=== PATIENT | male | born 1970 | race Caucasian/White ===

== ENCOUNTER 2019-11-25 11:11 | Inpatient (IN) | payer SELFPAY ==
[2019-11-25 11:14] VITALS: BP 114/81; PULSE 106; RESP 16; TEMP 36.7; O2SAT 98; BMI 45.1
[2019-11-25 11:26] LABS: Glucose Point of Care 256 mg/dL (70-110)
[2019-11-25 11:40] LABS: Basophils # 0.1 10^3/uL (0.0-0.1); Basophils % 0.6 %; Eosinophils # 0.1 10^3/uL (0.0-0.8); Eosinophils % 0.6 %; Hematocrit 43.3 % (42.0-52.0); Hemoglobin 14.4 g/dL (11.7-16.6); Lymphocytes # 1.6 10^3/uL (0.8-4.8); Lymphocytes % 13.7 %; Mean Corpuscular HGB Conc 33.3 g/dL (30.0-36.0); Mean Corpuscular Hemoglobin 27.1 pg (28.0-34.0); Mean Corpuscular Volume 81.4 fL (80-94); Mean Platelet Volume 11.2 fL (7.4-10.4); Monocytes % 8.8 %; Neutrophils # 8.57 10^3/uL (1.8-7.7); Neutrophils % 74.9 %; Nucleated Red Blood Cells % 0 %; Platelet Count 303 10^3/cmm (130-400); Red Blood Count 5.32 10^6/uL (4.1-5.3); Red Cell Distribution Width 13.2 % (12.1-15.1); White Blood Count 11.5 10^3/uL (4.0-10.0)
[2019-11-25 12:01] LABS: Alanine Aminotransferase 34 U/L (0-41); Albumin Level 4.1 g/dL (3.5-5.2); Alkaline Phosphatase 165 IU/L (40-130); Anion Gap 21.2 (5-19); Aspartate Amino Transferase 32 U/L (0-40); Blood Urea Nitrogen 11 mg/dL (6-20); Calcium 9.6 mg/dL (8.5-10.5); Carbon Dioxide 22 mmol/L (22-29); Chloride 95 mmol/L (98-107); Globulin 3.7 g/dL (1.3-4.6); Glomerular Filtration Rate 102.3 mL/min (90-130); Glucose 278 mg/dL (65-115); Osmolality Calculated 289 mOsm/kg (285-295); Potassium 3.2 mmol/L (3.5-5.1); Sodium 135 mmol/L (136-145); Total Protein 7.8 g/dL (6.6-8.7)
[2019-11-25] MEDS: haloperidol inj 5 mg/mL INJ 1 mL 2 MG IVP (12:04)
[2019-11-25] MEDS: piperacillin-tazobactam 3.375 GM in sodium chloride 0.9% (plus) 50 ML IV ×2 (12:04→20:39)
[2019-11-25 12:07] LABS: Alcohol Level < 10 mg/dL (0-10)
[2019-11-25 12:15] VITALS: BP 127/77; PULSE 96; RESP 20; TEMP 36.5; O2SAT 97
[2019-11-25 12:24] LABS: Lactic Sepsis W/Reflex 1.3 mmol/L (0.5-2.2)
--- NOTE | 2019-11-25 12:25 | PC.NURSE ---
Has several open wounds from scratching. There are Bugs all over me Left eye matted, red and draining. Pt states there are bugs in my eyes
--- NOTE | 2019-11-25 12:52 | ED_ITS ---
HPI - Skin/Abscess/Foreign Bdy General: Chief complaint: Skin/Abscess/Foreign Body Stated complaint: POSS INFESTATION Time Seen by Provider: 11/25/19 11:13 History of Present Illness: HPI narrative: This patient is a 49-year-old male who presents today complaining that he has worms in his skin. He said this started about 2 weeks ago. He has been treating his skin with lice treatment and has done a couple of house flea bombs in his truck. 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 He has multiple areas that are excoriated and appear infected including his left eye. He has a large lesion over the left evangelical. He denies fevers. He admits to smoking some marijuana while he was in [place] on his last trip driving. He denies alcohol or other drug use. He was picked up at home today and EMS notes that his was at the house but would not come out. She said that she did want to be around him she did not want to get whenever he had. The patient says that she also has lesions but this was not witnessed. EMS notes that they did not see any worms or insects on the patient although the patient kept handing them scabs and saying that they were bugs. MD complaint: rash and lesion Onset (ago): week(s) (2) Tetanus up to date: unsure Location: generalized Severity: severe Pain Consistency: constant Relieving factors: none Exacerbating factors: none Associated symptoms: Reports itching; Deny chills, fever(s), nausea or vomiting Treatments prior to arrival: OTC topical medication (Lice treatment) Review of Systems General: Reports: 10 or more systems reviewed and unremarkable except in HPI and below Const: Denies: fever(s), chills, fatigue or malaise Eyes: Denies: change in vision ENMT: Denies: odynophagia Card: Denies: chest pain or swelling of feet/ankles Resp: Denies: dyspnea, productive cough or non-productive cough GI: Denies: abdominal pain, nausea or vomiting : Denies: flank pain Musc: Denies: neck pain or back pain Skin/Breast: Reports: rash, pruritus, erythema, skin tenderness and sores Neuro: Denies: headache(s), numbness in extremities or weakness in extremities Maximiliano/Lymph: Denies: easy bruising or easy bleeding PFSH ED PFSH: Medical History Obesity Surgical History History of ankle surgery Family History Other No significant family history Social History Smoking and tobacco status: never smoked Alcohol intake: current Alcohol intake frequency: holidays/special occasions only Substance/Drug Use: current Substance/Drug use type: Marijuana Other substance/drug use details: Admits to using methamphetamine, although says has not used in a while, then says perhaps may be used some recently, is not sure. Says previously was snorting. Lives independently: Yes Household members: spouse Housing: House Marital status: Current occupational status: employed Physical Exam Const: COMMON NORMALS: no acute distress, patient oriented x3, no limitations and alert GENERAL APPEARANCE: cooperative and comfortable HENMT: HEAD & SCALP: other (Lesion, approximately 3 cm in diameter, on the left evangelical above the ear. This is scabbed over and dry.) FACE & SINUS: normal facial exam Eye: PERIORBITAL: periorbital findings abnormal (Left eye with marked surrounding erythema and purulent drainage. The conjunctive are swollen and red. Pupil appears intact and reactive. He also has significant swelling of the whole right side of his face and redness of the skin over the forehead and cheek.) Neck/C-Spine: COMMON NORMALS: supple, no meningeal signs and no JVD Chest: COMMONS NORMALS: normal inspection of the chest Resp: COMMON NORMALS: normal respiratory effort, No use of accessory muscles and clear to auscultation bilaterally AUSCULTATION: clear to auscultation bilaterally Cardio: COMMON NORMALS: no JVD, regular rate, regular rhythm and No murmurs present (Cardio) RATE: regular rate RHYTHM: regular rhythm GI: COMMON NORMALS: Normal to inspection, nondistended, normoactive bowel sounds present, Soft to palpation and non-tender INSPECTION: Yes normal to inspection AUSCULTATION: Yes normoactive bowel sounds PALPATION: Yes Soft to palpation Back/Pelvis: COMMON NORMALS: thoracic and lumbar spine normal to inspection Extremity: COMMON NORMALS: normal to inspection Neuro: COMMON NORMALS: patient oriented x3, moves all extremities, no focal motor deficits and no sensory deficits noted SENSORIUM/ORIENTATION: Yes alert MENINGEAL SIGNS: Yes no meningeal signs Psych: COMMON NORMALS: mental status grossly normal, cooperative and normal affect Skin: NARRATIVE SKIN EXAM: Multiple small excoriations all over the skin. There is a large lesion on the right upper abdomen with surrounding erythema. There is a large area on the left anterior lower leg and foot which appears infected. Course ED course: This patient will be admitted for cellulitis. His drug screen was positive for amphetamines. This does seem to be a psychiatric or substance abuse related issue however he certainly has created skin lesions which have become significantly infected. Cultures have been sent. Antibiotics have been started. Hospitalist will admit. Vital Signs: Vital signs: Vital Signs Temperature 97.6 F 11/25/19 20:00 Pulse Rate 78 11/25/19 20:00 Respiratory Rate 18 11/25/19 20:00 Blood Pressure 139/88 11/25/19 20:00 Pulse Oximetry 99 11/25/19 20:00 MDM - Skin/Abscess/Foreign Bdy Lab Data: Labs: Lab Results 11/25/19 11/25/19 11/25/19 Range/Units 10:40 10:40 10:40 WBC 11.5 H (4.0-10.0) 10^3/ uL RBC 5.32 H (4.1-5.3) 10^6/u L Hgb 14.4 (11.7-16.6) g/dL Hct 43.3 (42.0-52.0) % MCV 81.4 (80-94) fL MCH 27.1 L (28.0-34.0) pg MCHC 33.3 (30.0-36.0) g/dL RDW 13.2 (12.1-15.1) % Plt Count 303 (130-400) 10^3/c mm MPV 11.2 H (7.4-10.4) fL Neut % (Auto) 74.9 % Lymph % (Auto) 13.7 % [place] % (Auto) 8.8 % Eos % (Auto) 0.6 % Baso % (Auto) 0.6 % Neut # (Auto) 8.57 H (1.8-7.7) 10^3/u L Lymph # (Auto) 1.6 (0.8-4.8) 10^3/u L [place] # (Auto) 1.0 H (0.2-0.9) 10^3/u L Eos # (Auto) 0.1 (0.0-0.8) 10^3/u L Baso # (Auto) 0.1 (0.0-0.1) 10^3/u L Nucleated RBC % (a uto) 0 % Nucleated RBCs # 0.0 /100WBC ESR 74 H (0-10) mm/hr Sodium 135 L (136-145) mmol/L Potassium 3.2 L (3.5-5.1) mmol/L Chloride 95 L (98-107) mmol/L Carbon Dioxide 22 (22-29) mmol/L Anion Gap 21.2 H (5-19) BUN 11 (6-20) mg/dL Creatinine 0.8 (0.7-1.2) mg/dL GFR Calculation 102.3 (90-130) mL/min Glucose 278 H (65-115) mg/dL POC Glucose (70-110) mg/dL Calculated Osmolal ity 289 (285-295) mOsm/k g Lactic Acid (0.5-2.2) mmol/L Calcium 9.6 (8.5-10.5) mg/dL Total Bilirubin 1.0 (0.15-1.2) mg/dL AST 32 (0-40) U/L ALT 34 (0-41) U/L Alkaline Phosphata se 165 H (40-130) IU/L C-Reactive Protein (0.0-4.9) mg/L Total Protein 7.8 (6.6-8.7) g/dL Albumin 4.1 (3.5-5.2) g/dL Globulin 3.7 (1.3-4.6) g/dL Urine Color (Yellow) Urine Appearance (CLEAR) Urine pH (5-7) Ur Specific Gravit y (1.005-1.030) Urine Protein (Negative) Urine Glucose (UA) (Normal) Urine Ketones (Negative) Urine Blood (Negative) Urine Nitrate (Negative) Urine Bilirubin (Negative) Urine Urobilinogen (Negative) mg/dL Ur Leukocyte Zoila ase (Negative) Urine Opiates Scre en (Negative) ng/mL Ur Barbiturates Sc reen (Negative) ng/mL Ur Phencyclidine S crn (Negative) ng/mL Ur Amphetamines Sc reen (Negative) ng/mL U Benzodiazepines Scrn (Negative) ng/mL Urine Cocaine Scre en (Negative) ng/mL U Marijuana (THC) Screen (Negative) ng/mL Ethyl Alcohol < 10 (0-10) mg/dL 11/25/19 11/25/19 11/25/19 Range/Units 10:40 11:23 11:54 WBC (4.0-10.0) 10^3/ uL RBC (4.1-5.3) 10^6/u L Hgb (11.7-16.6) g/dL Hct (42.0-52.0) % MCV (80-94) fL MCH (28.0-34.0) pg MCHC (30.0-36.0) g/dL RDW (12.1-15.1) % Plt Count (130-400) 10^3/c mm MPV (7.4-10.4) fL Neut % (Auto) % Lymph % (Auto) % [place] % (Auto) % Eos % (Auto) % Baso % (Auto) % Neut # (Auto) (1.8-7.7) 10^3/u L Lymph # (Auto) (0.8-4.8) 10^3/u L [place] # (Auto) (0.2-0.9) 10^3/u L Eos # (Auto) (0.0-0.8) 10^3/u L Baso # (Auto) (0.0-0.1) 10^3/u L Nucleated RBC % (a uto) % Nucleated RBCs # /100WBC ESR (0-10) mm/hr Sodium (136-145) mmol/L Potassium (3.5-5.1) mmol/L Chloride (98-107) mmol/L Carbon Dioxide (22-29) mmol/L Anion Gap (5-19) BUN (6-20) mg/dL Creatinine (0.7-1.2) mg/dL GFR Calculation (90-130) mL/min Glucose (65-115) mg/dL POC Glucose 256 (70-110) mg/dL Calculated Osmolal ity (285-295) mOsm/k g Lactic Acid 1.3 (0.5-2.2) mmol/L Calcium (8.5-10.5) mg/dL Total Bilirubin (0.15-1.2) mg/dL AST (0-40) U/L ALT (0-41) U/L Alkaline Phosphata se (40-130) IU/L C-Reactive Protein 57.8 H (0.0-4.9) mg/L Total Protein (6.6-8.7) g/dL Albumin (3.5-5.2) g/dL Globulin (1.3-4.6) g/dL Urine Color (Yellow) Urine Appearance (CLEAR) Urine pH (5-7) Ur Specific Gravit y (1.005-1.030) Urine Protein (Negative) Urine Glucose (UA) (Normal) Urine Ketones (Negative) Urine Blood (Negative) Urine Nitrate (Negative) Urine Bilirubin (Negative) Urine Urobilinogen (Negative) mg/dL Ur Leukocyte Zoila ase (Negative) Urine Opiates Scre en (Negative) ng/mL Ur Barbiturates Sc reen (Negative) ng/mL Ur Phencyclidine S crn (Negative) ng/mL Ur Amphetamines Sc reen (Negative) ng/mL U Benzodiazepines Scrn (Negative) ng/mL Urine Cocaine Scre en (Negative) ng/mL U Marijuana (THC) Screen (Negative) ng/mL Ethyl Alcohol (0-10) mg/dL 11/25/19 11/25/19 Range/Units 13:58 13:58 WBC (4.0-10.0) 10^3/ uL RBC (4.1-5.3) 10^6/u L Hgb (11.7-16.6) g/dL Hct (42.0-52.0) % MCV (80-94) fL MCH (28.0-34.0) pg MCHC (30.0-36.0) g/dL RDW (12.1-15.1) % Plt Count (130-400) 10^3/c mm MPV (7.4-10.4) fL Neut % (Auto) % Lymph % (Auto) % [place] % (Auto) % Eos % (Auto) % Baso % (Auto) % Neut # (Auto) (1.8-7.7) 10^3/u L Lymph # (Auto) (0.8-4.8) 10^3/u L [place] # (Auto) (0.2-0.9) 10^3/u L Eos # (Auto) (0.0-0.8) 10^3/u L Baso # (Auto) (0.0-0.1) 10^3/u L Nucleated RBC % (a uto) % Nucleated RBCs # /100WBC ESR (0-10) mm/hr Sodium (136-145) mmol/L Potassium (3.5-5.1) mmol/L Chloride (98-107) mmol/L Carbon Dioxide (22-29) mmol/L Anion Gap (5-19) BUN (6-20) mg/dL Creatinine (0.7-1.2) mg/dL GFR Calculation (90-130) mL/min Glucose (65-115) mg/dL POC Glucose (70-110) mg/dL Calculated Osmolal ity (285-295) mOsm/k g Lactic Acid (0.5-2.2) mmol/L Calcium (8.5-10.5) mg/dL Total Bilirubin (0.15-1.2) mg/dL AST (0-40) U/L ALT (0-41) U/L Alkaline Phosphata se (40-130) IU/L C-Reactive Protein (0.0-4.9) mg/L Total Protein (6.6-8.7) g/dL Albumin (3.5-5.2) g/dL Globulin (1.3-4.6) g/dL Urine Color Yellow (Yellow) Urine Appearance Clear (CLEAR) Urine pH 5 (5-7) Ur Specific Gravit y 1.020 (1.005-1.030) Urine Protein Neg (Negative) Urine Glucose (UA) 4+ H (Normal) Urine Ketones 2+ H (Negative) Urine Blood Neg (Negative) Urine Nitrate Negative (Negative) Urine Bilirubin Neg (Negative) Urine Urobilinogen 1 H (Negative) mg/dL Ur Leukocyte Zoila ase Negative (Negative) Urine Opiates Scre en Negative (Negative) ng/mL Ur Barbiturates Sc reen Negative (Negative) ng/mL Ur Phencyclidine S crn Negative (Negative) ng/mL Ur Amphetamines Sc reen Positive H (Negative) ng/mL U Benzodiazepines Scrn Negative (Negative) ng/mL Urine Cocaine Scre en Negative (Negative) ng/mL U Marijuana (THC) Screen Negative (Negative) ng/mL Ethyl Alcohol (0-10) mg/dL Discharge Plan Discharge Patient Disposition: Admitted As Inpatient Admit Provider: Rad Grewal Discharge Date/Time: 11/25/19 17:34 Coding Level of Care Code ED Bearingizer for Chg Fwd Exam Comprehensive
--- NOTE | 2019-11-25 13:28 | CT_ITS ---
WS: [id number] CT orbit BI w con [id number] REASON FOR EXAM: r/o orbital cellulitis Multiple axial images were obtained with intravenous contrast enhancement. Coronal and sagittal MIP r econstructions were performed. TOTAL EXAM DLP: 410.[address] scans at [facility] use at least one of these dose optimization techniques: automat ed exposure control; mA and/or kV adjustment per patient size (includes targeted exams where dose is matched to clinical indication); or iterative reconstruction. FINDINGS: There is thickening of the soft tissue adjacent to the anterior inferior margins of both orbits. Pres umably this represents inflammation and swelling of the lower eyelid and adjacent soft tissue. Both globes are unremarkable. Normal optic nerves and ocular musculature. Normal intraorbital fat with no inflammatory change or ma ss identified. The bony structure of both orbits is unremarkable. Nasal septal deviation convex right with mild enlargement of the turbinates. No significant paranasal sinus changes. CT/CT orbit BI w con [id number] IMPRESSION: There is no intraorbital abnormality. Soft tissue abnormality is essentially sy mmetric and limited to the lower eyelid region.
--- NOTE | 2019-11-25 13:30 | CT_ITS ---
WS: [id number] CT head wo con* [id number] REASON FOR EXAM: AMS IV CONTRAST ADMINISTERED: None. TOTAL EXAM DLP: 798.[address] scans at [facility] use at least one of these dose optimization techniques: automat ed exposure control; mA and/or kV adjustment per patient size (includes targeted exams where dose is matched to clinical indication); or iterative reconstruction. FINDINGS: There is no midline shift or other significant mass effect. There is no ventriculomegaly. No findings of intra or extra-axial hemorrhage. No focal brain parenchymal abnormality is identified. Prominent pineal and choroidal calcification, not significant. The bony calvarium is intact. CT/CT head wo con* [id number] IMPRESSION: No significant intracranial abnormality.
[2019-11-25] MEDS: iohexol 300 mg/mL 100 mL Btl IV (13:41)
[2019-11-25 14:06] LABS: Add Urine Microscopic? NO
[2019-11-25 14:12] LABS: Bilirubin Urine Neg (Negative); Blood Urine Neg (Negative); Glucose Urine UA 4+ (Normal); Ketones Urine 2+ (Negative); Leukocyte Esterase Urine Negative (Negative); Nitrate Urine Negative (Negative); Protein Urine Neg (Negative); Urine Appearance Clear (CLEAR); Urine Color Yellow (Yellow); Urobilinogen Urine 1 mg/dL (Negative); pH Urine 5 (5-7)
[2019-11-25 14:21] LABS: Amphetamines Screen Urine Positive (Negative); Barbiturates Screen Urine Negative (Negative); Benzodiazepines Screen Urine Negative (Negative); Cocaine Screen Urine Negative (Negative); Opiate Screen Urine Negative (Negative); PCP Screen Urine Negative (Negative); THC Screen Urine Negative (Negative)
[2019-11-25 17:09] VITALS: BP 154/89; O2SAT 98
--- NOTE | 2019-11-25 17:16 | PC.NURSE ---
Dr Grewal in room ,assessing pt for admission
[2019-11-25 17:32] VITALS: BP 192/106; PULSE 65; O2SAT 100
--- NOTE | 2019-11-25 18:27 | PM.HP ---
Providers/Chief Complaint Admitting Physician: Rad Grewal Chief Complaint: POSS INFESTATION History of Present Illness Grzegorz Bess is a 49 year old male assessed in ER due to complaints of multiple bug bites, and stating that he has been having bugs coming out from his lesions, sometimes forearms. He reports that they are especially coming out anytime he is scratching the lesions. He otherwise says that lesions are not painful or itchy. He reports that the bugs are small, black. He says that at home he is try to save some of them and his has put some in the drawer. He has not brought any with him. He says that his discouraged him from coming to ER as nobody would believe them. He says that he is tried treating his house with flea bombs twice, but without success. He says he cannot identify what the bugs are. During the visit he tries to scratch and was lesions to see if he can show me how they come out from his lesions. He seems to think that perhaps some are coming, but never definitively identifies any. I definitely did not see any bugs in the lesions, on his skin, or around him on the bed. He has multiple excoriations on his body in various stages of healing. Asking if his could either bring a bottle in, or take pictures, he says that she would not want to come in, and also she does not drive. He does say that she also has multiple lesions on her body. He denies having history of prior skin condition. Says that this is been going on for several weeks. Denies any recent medication changes. In ER he test positive for amphetamine. He does admit to occasionally smoking marijuana, does say that occasionally snorts methamphetamine. He does have swelling, redness, as well as discharge from the left eye. He feels that he also had bugs coming out from the eye, although again I do not see any there. He denies any history of eye conditions in the past like glaucoma, etc. He does say that light is slightly bothersome, but denies trouble seeing. In ER he was assessed by CT head and orbit, without finding of intraorbital abnormality, with soft tissue swelling of lower eyelid and adjacent area. On CT swelling appears to be somewhat symmetrical. On examination left side definitely appears with more swelling, as well as drainage present which is not seen on the right. He received a dose of Zosyn and vancomycin in ER. Review of Systems Const: Denies: fever(s), chills, body aches or malaise Eyes: Reports: eye redness (around the eyes); Denies: change in vision ENMT: Denies: throat pain, oral sores or ear or mastoid pain Card: Denies: chest pain, edema, pre-syncope or dyspnea on exertion Resp: Denies: dyspnea, productive cough, change in phlegm color or hemoptysis GI: Denies: abdominal pain, nausea, vomiting, diarrhea, constipation, hematochezia or melena : Denies: flank pain, difficulty urinating, urinary frequency or hematuria Musc: Denies: back pain, joint swelling or joint redness Skin/Breast: Reports: rash, sores and new lesions (Feels that bugs are biting him, causing new lesions and when he scrathes them climb out of the lesions. Says also had multiple bugs coming up with him every he would climb into a bathtub. Denies any lesions on mucous membranes.) Neuro: Denies: headache(s), numbness in extremities, weakness in extremities, dizziness, confusion or seizure-like activity Endo: Denies: polyuria or polydipsia Maximiliano/Lymph: Denies: easy bleeding or purpura All/Imm: Denies: urticaria, throat swelling or tongue swelling Medications/Allergies Home Medications Medication Instructions Recorded Confirmed Last Taken Type naproxen 2 tab PO PRN 11/25/19 11/25/19 Unknown History phentermine 37.5 mg PO DAILY 11/25/19 11/25/19 11/25/19 History Allergies Allergy/AdvReac Type Severity Reaction Status Date / Time codeine Allergy ADR-Vomitin Verified 11/25/19 12:43 g PFSH Acute PFSH: Medical History Obesity Surgical History History of ankle surgery Family History Other No significant family history Social History Smoking and tobacco status: never smoked Alcohol intake: current Alcohol intake frequency: holidays/special occasions only Substance/Drug Use: current Substance/Drug use type: Marijuana Other substance/drug use details: Admits to using methamphetamine, although says has not used in a while, then says perhaps may be used some recently, is not sure. Says previously was snorting. Lives independently: Yes Household members: spouse Housing: House Marital status: Current occupational status: employed Vitals/I&O/Wt Last Vital Signs Temp 97.7 F 11/25/19 12:15 Pulse 65 11/25/19 17:32 Resp 20 H 11/25/19 12:15 BP 192/106 11/25/19 17:32 Pulse Ox 100 11/25/19 17:32 Weight last 48 hrs Weight 127.006 kg Physical Exam Const: COMMON NORMALS: no acute distress and patient oriented x3 NUTRITIONAL APPEARANCE: obese HENMT: COMMON NORMALS: oropharynx normal Eye: OTHER: Palpable swelling on the left side, upper and lower eyelid, on the left with purulent discharge, also with mild conjunctival erythema, pupils symmetric, reactive to light. Erythema crosses across the glabella to the other side with some palpable edema also on the right side, but not as pronounced, and without purulent discharge, no conjunctivitis. Neck/C-Spine: COMMON NORMALS: no JVD Resp: COMMON NORMALS: normal respiratory effort and clear to auscultation bilaterally AUSCULTATION: clear to auscultation bilaterally Cardio: COMMON NORMALS: no JVD, regular rhythm, S1 normal heart sound present, S2 normal heart sound present and No murmurs present (Cardio) RHYTHM: regular rhythm HEART SOUNDS: S1 normal heart sound present and S2 normal heart sound present GI: COMMON NORMALS: Normal to inspection, nondistended, normoactive bowel sounds present, Soft to palpation and non-tender PALPATION: Yes Soft to palpation Extremity: COMMON NORMALS: no joint enlargement and no pedal edema Neuro: COMMON NORMALS: patient oriented x3 and moves all extremities Skin: COMMON NORMALS: no rashes or lesions noted LESIONS: lesion noted (Multiple lesions scattered at his body, different sizes, different stages of healing, with excoriations, some small ulcerations like on his dorsal hands, forearms about 5-8 mm in size, with shallow base, some with small amount of sloughing tissue, some with healing eschar, 1 is freshly scratched small amount of bleeding, with minimal surrounding erythema. Some lesions on his body are larger, including larger more circular appearing lesion on the left congregation with yellowish appearing eschar tissue without any drainage, without any significant depth to the lesion, no raised borders, no surrounding erythema. No drainage. Another larger lesion noted on left dorsal foot, irregularly shaped, about 6 centimeters,, at 1 large small dried blood, otherwise some yellowish eschar, without any drainage, not much surrounding erythema. No oral lesions. No genital lesions. One 2 cm scalp lesion with some shallow ulceration, yellowish eschar, no drainage noted on the head about 2 cm, another smaller 1 about 8 mm) Data : 11/25/19 10:40 11/25/19 10:40 Micro: Microbiology 11/25/19 11:54 Blood Culture - Preliminary Blood SPECIMEN COLLECTED 11/25/19 11:54 Blood Culture - Preliminary Blood SPECIMEN COLLECTED A&P Assessment and plan (1) Preseptal cellulitis: Worse on the left side, with purulent discharge and conjunctivitis. No orbital cellulitis noted on CT of orbit, CT head unremarkable. I discussed with him, he is agreeable for admission for IV antibiotics due to moderate to severe amount of swelling of the soft tissues. Cipro eyedrops. Continue Vanco and Zosyn due to multiple skin lesions, sent for drug use. Check MRSA PCR. He has minimal leukocytosis 11 and 5, otherwise no signs sepsis, no sinus tachycardia, no fever or other symptoms. Monitor for any changes. Status: Acute (2) Conjunctivitis: As above. Visual acuity appears to be intact. No history of glaucoma. Quite significant overlying preseptal cellulitis. Status: Acute (3) Skin lesions: Multiple skin lesions scattered on his body in difference as is, different stages of healing some with yellowish eschar, some with some crusted blood covering. He reports that these are from bug bites and bugs climbing out of them if he scratches them or if he takes a bath. I did not see any bugs on him or around him he tried to scratch 1 lesions to show me, and I did not see any bugs coming out either. He does say that his also has a lesion, and that they do have some bugs at home discussed with him that if she could maybe take photos for us. At this time antibiotics as above for cellulitis. Will check ESR, CRP. Monitor for any insects or warms. His story seems to change and whether they are all black bugs or warms. My high concern is possibly for formication, perhaps secondary to amphetamine use. He does say 7 drinks alcohol as well, but only on occasion. Cannot be sure he is not having some withdrawal as well. At this time will add CIWA protocol in case of any severe withdrawal. Discussed with him regarding to me to use, as to risks with continued use and strongly urged against use again. He states he understands that he understands and knows about the risk. Under says that he should not be using. Status: Acute (4) Formication: As above. Not clear whether they are actually insects or warms there are tract will. Not could be seen on him in or around lesions, or on his bed or other belongings. For now we will keep under contact isolation, if can pictures of the insects this would be helpful. Otherwise he does see tried treating at home, but if in for in 6 involved, discussed with him may require professional assist fumigation. I did not see lesions between his and her toes. Will try to see if can get him tested for scabies, although this is much less likely given does not have typical lesions as finger webs, wrist,, nothing on genitals. Denies itching. Status: Acute (5) Leukocytosis: Minimal leukocytosis, 11. 5. As above Status: Acute (6) HTN (hypertension): Blood pressure elevated on presentation up to 1 reading of 192/106, low initially low 114/81. For now monitor. Cardiac diet. If persist any elevated or symptomatic may additional treatment. Status: Acute (7) Hypokalemia: Replace Status: Acute (8) Drug use: Discussed with him adverse effects of drug use. He understands should not be using methamphetamine. Says has not used in a while, then is not sure may have snorted some recently. Says occasionally smokes marijuana. 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 Status: Acute Attestations Medical Necessity Statement*: Place in observation. Coding Level of Care Code Acute Taco Maker for [employer] Diagnoses Preseptal cellulitis L03.213 Conjunctivitis H10.9 Skin lesions L98.9 Formication R20.2 Leukocytosis D72.829 HTN (hypertension) I10 Hypokalemia E87.6 Drug use F19.90
--- NOTE | 2019-11-25 18:57 | PC.PHAR ---
Pharmacokinetic dosing service Objective: Patient: Floor: Age: 49 yo Serum creatinine: 0.8 mg/dL Height: 66.1 Inches Weight (kg): 127 Assessment: IBW (kg): 64.03 Dosing wt(kg): 89.2 Estimated Creatinine clearance (ml/min): 130 Clearance limited to 130 ml/min to reduce risk of overdosing. CRCL method: Cockcroft and Gault using adjusted body weight Drug selected: Vancomycin Loading dose (mg): Vd (liters): 62.4 (factor used: 0.7 L/kg) Leobardo (hr-1): 0.112 Half life (hrs): 6.19 CLvanco= 6.989 L/hr Recommended dose: 1500 mg Interval: 8 hrs Infusion time (hrs): 1 Predicted peak (mcg/mL): 38.4 Predicted trough (mcg/mL): 17.53 Adjusted body weight was selected for vancomycin dosing. To switch back, select the total body weight option above. Renal function is stable [ ] /unstable [ ] Recommendations: Give Vancomycin 1500 mg q 8 hrs with an expected Cpeak of 38.4 mcg/ml and an expected Ctrough of 17.53 mcg/ml AUC 0-24 /CRYSTAL Data: CRYSTAL 0.5 mcg/mL: AUC/CRYSTAL: 1287.7 CRYSTAL 1.0 mcg/mL: AUC/CRYSTAL: 643.9 --------- CRYSTAL 1.5 mcg/mL: AUC/CRYSTAL: 429.2 CRYSTAL 2.0 mcg/mL: AUC/CRYSTAL: 321.9 Thank you for the consult, will continue to follow.
[2019-11-25 19:07] LABS: C Reactive Protein 57.8 mg/L (0.0-4.9)
[2019-11-25 19:34] VITALS: BP 139/88; PULSE 78; RESP 18; TEMP 36.4; O2SAT 99
[2019-11-25 19:42] LABS: Erythrocyte Sedimentation Rate 74 mm/hr (0-10)
[2019-11-25 20:00] VITALS: BP 139/88; PULSE 78; RESP 18; TEMP 36.4; O2SAT 99
[2019-11-25] MEDS: ciprofloxacin 0.3% Op Soln 2.5 mL Btl 1 DROP EYE-LEFT (23:58)
[2019-11-26] VITALS: BP 131/82; PULSE 68; RESP 20; TEMP 36.9; O2SAT 97
[2019-11-26 04:00] VITALS: BP 138/89; PULSE 72; RESP 18; TEMP 36.6; O2SAT 97
[2019-11-26] MEDS: piperacillin-tazobactam 3.375 GM in sodium chloride 0.9% (plus) 50 ML IV ×3 (04:57→23:07)
[2019-11-26 05:21] LABS: Basophils # 0.1 10^3/uL (0.0-0.1); Basophils % 0.7 %; Eosinophils # 0.1 10^3/uL (0.0-0.8); Eosinophils % 1.7 %; Hematocrit 39.3 % (42.0-52.0); Hemoglobin 12.9 g/dL (11.7-16.6); Lymphocytes # 2.2 10^3/uL (0.8-4.8); Lymphocytes % 27.9 %; Mean Corpuscular HGB Conc 32.8 g/dL (30.0-36.0); Mean Corpuscular Hemoglobin 27.1 pg (28.0-34.0); Mean Corpuscular Volume 82.6 fL (80-94); Mean Platelet Volume 10.9 fL (7.4-10.4); Monocytes # 0.9 10^3/uL (0.2-0.9); Monocytes % 10.7 %; Neutrophils # 4.59 10^3/uL (1.8-7.7); Neutrophils % 57.3 %; Nucleated Red Blood Cells % 0 %; Platelet Count 266 10^3/cmm (130-400); Red Blood Count 4.76 10^6/uL (4.1-5.3); Red Cell Distribution Width 13.2 % (12.1-15.1)
[2019-11-26 06:00] LABS: Alanine Aminotransferase 27 U/L (0-41); Albumin Level 3.4 g/dL (3.5-5.2); Alkaline Phosphatase 138 IU/L (40-130); Aspartate Amino Transferase 27 U/L (0-40); Blood Urea Nitrogen 9 mg/dL (6-20); Calcium 9.3 mg/dL (8.5-10.5); Carbon Dioxide 23 mmol/L (22-29); Chloride 102 mmol/L (98-107); Globulin 3.3 g/dL (1.3-4.6); Glomerular Filtration Rate 102.3 mL/min (90-130); Glucose 176 mg/dL (65-115); Osmolality Calculated 291 mOsm/kg (285-295); Sodium 139 mmol/L (136-145); Total Bilirubin 0.6 mg/dL (0.15-1.2); Total Protein 6.7 g/dL (6.6-8.7)
[2019-11-26 07:45] VITALS: BP 143/91; PULSE 76; RESP 18; TEMP 36.4; O2SAT 97
[2019-11-26] MEDS: ciprofloxacin 0.3% Op Soln 2.5 mL Btl 1 DROP EYE-LEFT ×4 (08:41→23:06)
[2019-11-26] MEDS: folic acid 1 mg Tablet PO (08:44)
[2019-11-26] MEDS: multivitamin therapeutic Tablet 1 TAB PO (08:44)
[2019-11-26] MEDS: thiamine 100 mg Tablet PO (08:44)
[2019-11-26] MEDS: potassium chloride ER 10 mEq Tablet 40 MEQ PO (08:44)
[2019-11-26 11:31] VITALS: BP 141/82; PULSE 84; RESP 16; TEMP 36.6; O2SAT 99
[2019-11-26 11:56] LABS: Vancomycin Trough 19.3 ug/mL (10-15)
--- NOTE | 2019-11-26 14:28 | PM.PN ---
Subjective Subjective: Interval history: His eyes still bothering him. Swollen. Has some drainage. Has photophobia. We have not noted any bugs on or around him. Vitals/I&O/Wt Last Vital Signs Temp 97.8 F 11/26/19 11:31 Pulse 84 11/26/19 11:31 Resp 16 11/26/19 11:31 BP 141/82 11/26/19 11:31 Pulse Ox 99 11/26/19 11:31 11/25/19 11/26/19 11/26/19 22:59 06:59 14:59 Intake Total 60 / 60 1050 / 1110 50 / 50 Output Total 500 / 500 Balance 60 / 60 1050 / 1110 -450 / -450 Weight last 48 hrs Weight 127.006 kg Physical Exam Const: COMMON NORMALS: no acute distress and patient oriented x3 NUTRITIONAL APPEARANCE: obese HENMT: COMMON NORMALS: oropharynx normal Eye: OTHER: Swelling appears better on the R side. L side still swollen. Mucopurulent drainage. Mild conjunctivitis. Pupils reactive. Visual acuity appears preserved. Erythema crossing the glabella is much better. Rright side without purulent discharge, no conjunctivitis. Neck/C-Spine: COMMON NORMALS: no JVD Resp: COMMON NORMALS: normal respiratory effort and clear to auscultation bilaterally AUSCULTATION: clear to auscultation bilaterally Cardio: COMMON NORMALS: no JVD, regular rhythm, S1 normal heart sound present, S2 normal heart sound present and No murmurs present (Cardio) RHYTHM: regular rhythm HEART SOUNDS: S1 normal heart sound present and S2 normal heart sound present GI: COMMON NORMALS: Normal to inspection, nondistended, normoactive bowel sounds present, Soft to palpation and non-tender PALPATION: Yes Soft to palpation Extremity: COMMON NORMALS: no joint enlargement and no pedal edema Neuro: COMMON NORMALS: patient oriented x3 and moves all extremities Skin: COMMON NORMALS: no rashes or lesions noted GENERAL SKIN EXAM: no rashes or lesions noted LESIONS: lesion noted (Multiple lesions scattered at his body, different sizes, different stages of healing, with excoriations, some small ulcerations like on his dorsal hands, forearms about 5-8 mm in size, with shallow base, some with small amount of sloughing tissue, some with healing eschar, 1 is freshly scratched small amount of bleeding, with minimal surrounding erythema. Some lesions on his body are larger, including larger more circular appearing lesion on the left worship with yellowish appearing eschar tissue without any drainage, without any significant depth to the lesion, no raised borders, no surrounding erythema. No drainage. Another larger lesion noted on left dorsal foot, irregularly shaped, about 6 centimeters,, at 1 large small dried blood, otherwise some yellowish eschar, without any drainage, not much surrounding erythema. No oral lesions. No genital lesions. One 2 cm scalp lesion with some shallow ulceration, yellowish eschar, no drainage noted on the head about 2 cm, another smaller 1 about 8 mm) Data : 11/26/19 04:55 11/26/19 04:55 Micro: Microbiology 11/25/19 11:54 Blood Culture - Preliminary Blood NEGATIVE TO DATE 11/25/19 11:54 Blood Culture - Preliminary Blood NEGATIVE TO DATE 11/25/19 20:26 MRSA Culture - Final Nose A&P Assessment and plan (1) Preseptal cellulitis: There is some improvement of swelling on his forehead, as well as superiorly over the left upper palpebra. Left side upper and lower eyelid still pretty swollen. Mucopurulent discharge still present. He is having photophobia. Pupils reactive. Visual acuity appears preserved. I do not see any foreign objects. No foreign object noted on CT orbit or head. Due to severity of cellulitis at this time continue IV antibiotics. Cipro eyedrops. Continue Vanco and Zosyn also due to multiple skin lesions, sent for drug use. Negative MRSA PCR. Follow left eye culture. Improved minimal leukocytosis, otherwise no signs sepsis, no sinus tachycardia, no fever or other symptoms. Monitor for any changes in the hospital due to reported infestation at home, propensity for him to pick on lesions and concern for poor hygienic practices. Status: Acute (2) Conjunctivitis: As above. Visual acuity appears to be intact. No history of glaucoma. Quite significant overlying preseptal cellulitis. Status: Acute (3) Skin lesions: Discussed with his . She cannot describe what kind of insect she may have seen. It does not appear she is seeing insects actually coming from his wounds, but she does try to describe that in 6 go through multiple life cycles and continue to attack him. I am not sure whether this is something she is observed or he is repeating based on what he has told her. She does think that she and her daughter have seen some insects of different sizes around the house. She will try to obtain some pictures and sent to his phone. Obtained scraping of the larger lesion, after obtaining consent from him, on his dorsal left foot with some dry yellowish eschar in the center. Will assess for scabies. Wound was prepped with chlorhexidine, scraped with sterile #15 scalpel, and treated with chlorhexidine subsequently. No bleeding or wounds, small amount of scrapings collected into container as instructed by microbiology. He tolerated it without any issues. Multiple skin lesions scattered on his body in difference as is, different stages of healing some with yellowish eschar, some with some crusted blood covering. He reports that these are from bug bites and bugs climbing out of them if he scratches them or if he takes a bath. I did not see any bugs on him or around him he tried to scratch 1 lesions to show me, and I did not see any bugs coming out either. He does say that his also has a lesion, and that they do have some bugs at home discussed with him that if she could maybe take photos for us. At this time antibiotics as above for cellulitis. ESR 74, CRP 57.8. Monitor for any insects or worms. His story seems to change and whether they are all black bugs or worms. My high concern is possibly for formication, perhaps secondary to amphetamine use. He does say he drinks alcohol as well, but only on occasion. Monitor for any withdrawal. So far has been remaining lucid. Discussed with him regarding to me to use, as to risks with continued use and strongly urged against use again. He states he understands that he understands and knows about the risk. Under says that he should not be using. Status: Acute (4) Formication: As above. Not clear whether they are actually insects or worms there are tract will. Not could be seen on him in or around lesions, or on his bed or other belongings. For now we will keep under contact isolation, if can pictures of the insects this would be helpful. Otherwise he does see tried treating at home, but if in for in 6 involved, discussed with him may require professional assist fumigation. I did not see lesions between his and her toes. Sample collected for assessment for scabies. Status: Acute (5) Leukocytosis: Resolved Status: Acute (6) HTN (hypertension): Improved. Remains close to goal, although could be a little bit better. Continue cardiac diet. Monitor. Status: Acute (7) Hypokalemia: Received additional replacement Status: Acute (8) Drug use: Discussed with him adverse effects of drug use. He understands should not be using methamphetamine. Says has not used in a while, then is not sure may have snorted some recently. Says occasionally smokes marijuana. 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 Status: Acute Attestations Medical Necessity Statement*: Continue admission for IV antibiotic treatment of preseptal cellulitis, conjunctivitis, with also multiple skin lesions and investigation for possible parasitic infection. Coding Level of Care Code Acute Hot [employer] [facility] Diagnoses Preseptal cellulitis L03.213 Conjunctivitis H10.9 Skin lesions L98.9 Formication R20.2 Leukocytosis D72.829 HTN (hypertension) I10 Hypokalemia E87.6 Drug use F19.90
[2019-11-26 15:32] VITALS: BP 152/92; PULSE 65; RESP 16; TEMP 36.4; O2SAT 100
[2019-11-26] MEDS: acetaminophen 325 mg Tablet 650 MG PO (16:19)
[2019-11-26 20:00] VITALS: BP 124/83; PULSE 65; RESP 17; TEMP 36.4; O2SAT 97
[2019-11-27] VITALS: BP 137/70; PULSE 64; RESP 19; TEMP 36.8; O2SAT 97
[2019-11-27 04:00] VITALS: BP 142/62; PULSE 61; RESP 17; TEMP 36.7; O2SAT 95
[2019-11-27] MEDS: piperacillin-tazobactam 3.375 GM in sodium chloride 0.9% (plus) 50 ML IV (04:07)
[2019-11-27 05:46] LABS: Basophils # 0.1 10^3/uL (0.0-0.1); Basophils % 0.6 %; Eosinophils # 0.1 10^3/uL (0.0-0.8); Eosinophils % 1.5 %; Hematocrit 38.4 % (42.0-52.0); Hemoglobin 12.3 g/dL (11.7-16.6); Lymphocytes # 1.7 10^3/uL (0.8-4.8); Lymphocytes % 21.6 %; Mean Corpuscular Hemoglobin 27.1 pg (28.0-34.0); Mean Corpuscular Volume 84.6 fL (80-94); Mean Platelet Volume 10.8 fL (7.4-10.4); Monocytes % 12.3 %; Neutrophils # 4.85 10^3/uL (1.8-7.7); Neutrophils % 62.1 %; Nucleated Red Blood Cells % 0 %; Platelet Count 223 10^3/cmm (130-400); Red Blood Count 4.54 10^6/uL (4.1-5.3); Red Cell Distribution Width 13.2 % (12.1-15.1); White Blood Count 7.8 10^3/uL (4.0-10.0)
[2019-11-27 06:35] LABS: Alanine Aminotransferase 24 U/L (0-41); Albumin Level 3.2 g/dL (3.5-5.2); Alkaline Phosphatase 131 IU/L (40-130); Anion Gap 15.5 (5-19); Aspartate Amino Transferase 25 U/L (0-40); Blood Urea Nitrogen 14 mg/dL (6-20); Calcium 9.3 mg/dL (8.5-10.5); Carbon Dioxide 25 mmol/L (22-29); Chloride 104 mmol/L (98-107); Globulin 3.2 g/dL (1.3-4.6); Glomerular Filtration Rate 30.2 mL/min (90-130); Glucose 199 mg/dL (65-115); Osmolality Calculated 298 mOsm/kg (285-295); Potassium 3.5 mmol/L (3.5-5.1); Sodium 141 mmol/L (136-145); Total Bilirubin 0.6 mg/dL (0.15-1.2); Total Protein 6.4 g/dL (6.6-8.7)
[2019-11-27 08:00] VITALS: BP 136/97; PULSE 78; RESP 16; TEMP 36.4; O2SAT 98
[2019-11-27] MEDS: multivitamin therapeutic Tablet 1 TAB PO (08:45)
[2019-11-27] MEDS: folic acid 1 mg Tablet PO (08:45)
[2019-11-27] MEDS: thiamine 100 mg Tablet PO (08:45)
[2019-11-27] MEDS: ciprofloxacin 0.3% Op Soln 2.5 mL Btl 1 DROP EYE-LEFT ×4 (08:45→21:39)
--- NOTE | 2019-11-27 11:06 | PC.CHAP ---
Pastoral Care Encounter/Spiritual Assessment Type of Contact [] Declined operative supervisor visit [] Patient/Family/Request visit [] Outpatient visit [] Follow-up visit [] Physician referral [] Code/Alert [] Routine visit [] Staff referral [] Actively dying [] Patient sleeping [] Family support [] [] Out of room [] Palliative care [] [] Receiving care in room [] Pre-surgical visit [] Trauma [] Long length of stay [] ICU visit [x] Other: covid 19 Relational/Emotional Strength [] Patient feels connected with others/family/visitors/staff [] Distress [] Loneliness/isolation [] Abandonment Spirituality of Patient [] Person of Jacki [] Attends Hoahaoism of their Jacki [] Believes in Prayer [] Reads Bible or Muslim materials [] There are Spiritual issues to be addressed Advanced Nursing Professor Interventions [] Prayer [] Active listening [] Non-anxious presence [] Spiritual/emotional support [] Crisis/trauma care [] Spiritual counseling [] Bereavement support [] Provided bereavement packet [] Provided Bible/devotional materials [] Provided toy/stuffed animal, coloring book to patient or family member [] Provided Communion [] Anointing/[place] [] Salvation [] Completed spiritual assessment [] Other: Impact on Illness or Injury [] Angry [] Fearful [] Anxious [] Often cries [] Exhaustion [] Unable to work [] Unable to attend roman catholic [] Unable to walk/stand [] Unable to read [] Unable to drive [] Unable to eat/drink [] Unable to sleep [] Unable to be with family [] Patient intubated [] Other: Summary covid 19 Time spent with patient 5 mins
[2019-11-27 12:00] VITALS: BP 137/92; PULSE 75; RESP 16; TEMP 36.4; O2SAT 96
[2019-11-27 13:49] LABS: Vancomycin Trough 31.8 ug/mL (10-15)
[2019-11-27 15:28] VITALS: BP 132/83; PULSE 71; RESP 16; TEMP 36.4; O2SAT 71
[2019-11-27 20:00] VITALS: BP 131/77; PULSE 73; RESP 18; TEMP 36.5; O2SAT 99
--- NOTE | 2019-11-27 21:03 | PM.PN ---
Subjective Subjective: Interval history: Cellulitis is improving, he is able to open his left eye now. He is working with his and the nurse to try to find an skiver hand. Reportedly skiver hand was found and came out to the house, reported that there is in fact some sort of infestation going on, but he is not sure what kind of insects that they may be, and so is having his supervisor plating and point assembly assess the situation. I could not identify any of the insects sent over by his as pictures are too blurry. Vitals/I&O/Wt Last Vital Signs Temp 97.7 F 11/27/19 20:00 Pulse 73 11/27/19 20:00 Resp 18 11/27/19 20:00 BP 131/77 11/27/19 20:00 Pulse Ox 99 11/27/19 20:00 11/27/19 11/27/19 11/27/19 06:59 14:59 22:59 Intake Total 780 / 1370 120 / 120 240 / 360 Output Total 650 / 1800 800 / 800 Balance 130 / -430 -680 / -680 240 / -440 Physical Exam Const: COMMON NORMALS: no acute distress and patient oriented x3 NUTRITIONAL APPEARANCE: obese HENMT: COMMON NORMALS: oropharynx normal Eye: OTHER: Improving preseptal cellulitis with decreasing swelling, decreasing drainage. Today he is able to open his eye. Left side is still more swollen compared to the right. I again do not see any insects. Swelling with near resolution on R side. On the left mucopurulent drainage. Mild conjunctivitis. Pupils reactive. Visual acuity appears preserved. Neck/C-Spine: COMMON NORMALS: no JVD Resp: COMMON NORMALS: normal respiratory effort and clear to auscultation bilaterally AUSCULTATION: clear to auscultation bilaterally Cardio: COMMON NORMALS: no JVD, regular rhythm, S1 normal heart sound present, S2 normal heart sound present and No murmurs present (Cardio) RHYTHM: regular rhythm HEART SOUNDS: S1 normal heart sound present and S2 normal heart sound present GI: COMMON NORMALS: Normal to inspection, nondistended, normoactive bowel sounds present, Soft to palpation and non-tender PALPATION: Yes Soft to palpation Extremity: COMMON NORMALS: no joint enlargement and no pedal edema Neuro: COMMON NORMALS: patient oriented x3 and moves all extremities Skin: COMMON NORMALS: no rashes or lesions noted GENERAL SKIN EXAM: no rashes or lesions noted LESIONS: lesion noted (Multiple lesions scattered at his body, different sizes, different stages of healing, with excoriations, some small ulcerations like on his dorsal hands, forearms about 5-8 mm in size, with shallow base, some with small amount of sloughing tissue, some with healing eschar, 1 is freshly scratched small amount of bleeding, with minimal surrounding erythema. Some lesions on his body are larger, including larger more circular appearing lesion on the left caodaism with yellowish appearing eschar tissue without any drainage, without any significant depth to the lesion, no raised borders, no surrounding erythema. No drainage. Another larger lesion noted on left dorsal foot, irregularly shaped, about 6 centimeters,, at 1 large small dried blood, otherwise some yellowish eschar, without any drainage, not much surrounding erythema. No oral lesions. No genital lesions. One 2 cm scalp lesion with some shallow ulceration, yellowish eschar, no drainage noted on the head about 2 cm, another smaller 1 about 8 mm) Data : 11/27/19 05:05 11/27/19 05:05 Micro: Microbiology 11/25/19 12:50 Eye/Ear/Nose/Throat Culture - Preliminary Eye - Left Staphylococcus aureus A&P Assessment and plan (1) Preseptal cellulitis: Improving preseptal cellulitis, still swollen left side but now he is able to open his eye partially. Drainage is improving. Staphylococcus aureus not MRSA but resistant to penicillin and Unasyn growing on culture. He is developed acute kidney injury. Discussed with him creatinine is up to 2.3. Did take naproxen at home, but also received Zosyn, vancomycin here. Counseled him to avoid NSAIDs in the future. Discontinue current antibiotics and changed to Rocephin. No foreign object noted on CT orbit or head. No orbital cellulitis. Due to severity of cellulitis at this time continue IV antibiotics. Cipro eyedrops. Continue Vanco and Zosyn also due to multiple skin lesions, sent for drug use. Negative MRSA PCR. Improved minimal leukocytosis, otherwise no signs sepsis, no sinus tachycardia, no fever or other symptoms. Status: Acute (2) NANCY (acute kidney injury): As above. Status: Acute (3) Conjunctivitis: As above. Status: Acute (4) Skin lesions: has attempted to send some pictures this morning, but I could not identify any of the insects in the pictures as images were too blurry. Patient working with nursing staff and his were able to get a skiver hand to come out, who stated that indeed appears there is an infestation of some sort at his home, however, he could not identify what organism was the cause of it and was having to summon his supervisor plating and point assembly to assess the situation. On prior discussion with his she cannot describe what kind of insect she may have seen. It does not appear she is seeing insects actually coming from his wounds, but she does try to describe that in 6 go through multiple life cycles and continue to attack him. I am not sure whether this is something she is observed or he is repeating based on what he has told her. She does think that she and her daughter have seen some insects of different sizes around the house. Pending skin scrapings sample for scabies. Multiple skin lesions scattered on his body in difference as is, different stages of healing some with yellowish eschar, some with some crusted blood covering. He reports that these are from bug bites and bugs climbing out of them if he scratches them or if he takes a bath. I did not see any bugs on him or around him he tried to scratch 1 lesions to show me, and I did not see any bugs coming out either. He does say that his also has a lesion, and that they do have some bugs at home discussed with him that if she could maybe take photos for us. At this time antibiotics as above for cellulitis. ESR 74, CRP 57.8. Monitor for any insects or worms. His story seems to change and whether they are all black bugs or worms. My high concern is possibly for formication, perhaps secondary to amphetamine use. He does say he drinks alcohol as well, but only on occasion. Monitor for any withdrawal. So far has been remaining lucid. Discussed with him regarding to me to use, as to risks with continued use and strongly urged against use again. He states he understands that he understands and knows about the risk. Under says that he should not be using. Status: Acute (5) Formication: As above. Not clear whether they are actually insects or worms there are tract will. Not could be seen on him in or around lesions, or on his bed or other belongings. For now we will keep under contact isolation, if can pictures of the insects this would be helpful. Otherwise he does see tried treating at home, but if in for in 6 involved, discussed with him may require professional assist fumigation. I did not see lesions between his and her toes. Sample collected for assessment for scabies. Maintained under contact isolation due to concern for actual infestation at home. Status: Acute (6) Leukocytosis: Resolved Status: Acute (7) HTN (hypertension): Improved. Remains close to goal, although could be a little bit better. Continue cardiac diet. Monitor. Status: Acute (8) Hypokalemia: Received additional replacement Status: Acute (9) Drug use: Discussed with him adverse effects of drug use. He understands should not be using methamphetamine. Says has not used in a while, then is not sure may have snorted some recently. Says occasionally smokes marijuana. 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 Status: Acute Attestations Medical Necessity Statement*: Continue admission for assessment of management of significant preseptal cellulitis, assessment for possible parasitic skin infection, acute kidney injury. Coding Level of Care Code Acute [employer] Head Former for [employer] Brinda Diagnoses Preseptal cellulitis L03.213 NANCY (acute kidney injury) N17.9 Conjunctivitis H10.9 Skin lesions L98.9 Formication R20.2 Leukocytosis D72.829 HTN (hypertension) I10 Hypokalemia E87.6 Drug use F19.90
[2019-11-27] MEDS: cefTRIAXone 1,000 MG in sodium chloride 0.9% (plus) 50 ML 100 MG IV (21:39)
[2019-11-28] VITALS: BP 152/81; PULSE 76; RESP 17; TEMP 36.7; O2SAT 96
[2019-11-28 04:00] VITALS: BP 156/89; PULSE 77; RESP 17; TEMP 36.8; O2SAT 97
[2019-11-28 05:38] LABS: Basophils # 0.1 10^3/uL (0.0-0.1); Basophils % 0.7 %; Eosinophils # 0.1 10^3/uL (0.0-0.8); Eosinophils % 1.5 %; Hematocrit 37.1 % (42.0-52.0); Hemoglobin 12.2 g/dL (11.7-16.6); Lymphocytes # 1.8 10^3/uL (0.8-4.8); Lymphocytes % 23.4 %; Mean Corpuscular HGB Conc 32.9 g/dL (30.0-36.0); Mean Corpuscular Hemoglobin 27.2 pg (28.0-34.0); Mean Corpuscular Volume 82.8 fL (80-94); Mean Platelet Volume 11.1 fL (7.4-10.4); Monocytes % 13.1 %; Neutrophils # 4.45 10^3/uL (1.8-7.7); Neutrophils % 59.3 %; Nucleated Red Blood Cells % 0 %; Platelet Count 218 10^3/cmm (130-400); Red Blood Count 4.48 10^6/uL (4.1-5.3); Red Cell Distribution Width 13.1 % (12.1-15.1); White Blood Count 7.5 10^3/uL (4.0-10.0)
[2019-11-28 06:07] LABS: Alanine Aminotransferase 20 U/L (0-41); Albumin Level 3.3 g/dL (3.5-5.2); Alkaline Phosphatase 130 IU/L (40-130); Anion Gap 15.4 (5-19); Aspartate Amino Transferase 24 U/L (0-40); Blood Urea Nitrogen 16 mg/dL (6-20); Calcium 9.3 mg/dL (8.5-10.5); Carbon Dioxide 23 mmol/L (22-29); Chloride 105 mmol/L (98-107); Globulin 3.3 g/dL (1.3-4.6); Glomerular Filtration Rate 24.1 mL/min (90-130); Glucose 212 mg/dL (65-115); Osmolality Calculated 297 mOsm/kg (285-295); Potassium 3.4 mmol/L (3.5-5.1); Sodium 140 mmol/L (136-145); Total Bilirubin 0.4 mg/dL (0.15-1.2); Total Protein 6.6 g/dL (6.6-8.7)
[2019-11-28 08:00] VITALS: BP 137/92; PULSE 71; RESP 18; TEMP 36.7; O2SAT 99
[2019-11-28] MEDS: potassium chloride ER 10 mEq Tablet 20 MEQ PO (09:19)
[2019-11-28] MEDS: ciprofloxacin 0.3% Op Soln 2.5 mL Btl 1 DROP EYE-LEFT (09:20)
[2019-11-28] MEDS: folic acid 1 mg Tablet PO (09:20)
[2019-11-28] MEDS: thiamine 100 mg Tablet PO (09:20)
[2019-11-28] MEDS: multivitamin therapeutic Tablet 1 TAB PO (09:20)
[2019-11-28] MEDS: sodium chloride 0.9% 500 ML 100 ML IV (10:46)
[2019-11-28 12:00] VITALS: BP 161/92; PULSE 67; RESP 18; TEMP 36.6; O2SAT 96
--- NOTE | 2019-11-28 12:57 | P.DS_ITS ---
Discharge Providers Date of Admission: 11/26/19 14:47 Date of Discharge: November 28, 2019 Attending Provider at Admission: Rad Grewal Attending Provider at Discharge: Rad Grewal Diagnoses at Discharge Discharge Diagnosis (1) Preseptal cellulitis: Status: Acute (2) NANCY (acute kidney injury): Status: Acute (3) Conjunctivitis: Status: Acute (4) Skin lesions: Status: Acute (5) Formication: Status: Acute (6) Leukocytosis: Status: Acute (7) HTN (hypertension): Status: Acute (8) Hypokalemia: Status: Acute (9) Drug use: Status: Acute Reason for Visit Reason for Visit: POSS INFESTATION Hospital Course Hospital Course: 49-year-old gentleman with history of obesity, on weight loss medication, was admitted due to large area of preseptal cellulitis, much worse on the left side, with some associated moderate conjunctivitis, and preseptal cellulitis crossing across the forehead/glabella and to the right eye as well. CT head and orbital CT did not reveal orbital cellulitis or other complications. He also had multiple wounds/ulcers/excoriations on his body stating that he has been having infestation of some sort of insects or large by or sometimes warms which would go through different forms in the lifecycle, and felt that they were sometimes coming out of his wounds. No insects were noted on him or on his belongings in the emergency department. His did send in some pictures of insects at home but they were too blurry to identify. They reportedly did call out and laboratory animal facility supervisor who said that they did have some sort of infestation, but he himself could not identify the insects. Scrapings were collected from some eschar tissue on his wound and sent for assessment for scabies, although otherwise distribution is not suggestive of this infection. He did not have sepsis. Due to extent of cellulitis was treated with IV antibiotics in the hospital initially with Zosyn and vancomycin. He did develop acute kidney injury which may have been due to naproxen he takes at home, and/or possibly antibiotic combination, so these were discontinued. I culture eventually grew Staphylococcus aureus, not MRSA but resistant to amoxicillin. He was transitioned to Rocephin. He has preseptal cellulitis was improving, and has improved to the point he is able to mostly open the left eye. Erythema has significantly subsided and is nearly resolved. Still some residual conjunctivitis for which she is also been receiving Cipro gtt.. He is stated to the nurse that he is going to leave AGAINST MEDICAL ADVICE today. I asked her to remove her to remove his IV and get him ready. I discussed with him and he understands that there is a risk that infection may return or worsen, as well as with kidney injury he is risking worse renal failure, with our diagnosis and treatment not complete he states he understands that he is at risk of progression of his condition or complications that may lead to disability or . He understands that we are encouraging him to stay to continue work-up and treatment and he can do so in case he changes his mind, and is also welcome to return at any time to ER to continue his treatment. He is otherwise encouraged to follow-up with primary care provider as soon as possible, and is also given referral to ophthalmology. He is also informed that he is given prescriptions for antibiotics, Cipro drops to continue at home. He is counseled against use of any further NSAIDs. He is counseled against use of any further recreational drugs. He verbalized understanding. He understands that he needs to stay in the hospital and that his care is incomplete, but is welcome to return in case he still proceeds with leaving. Physical Exam Const: COMMON NORMALS: no acute distress and patient oriented x3 NUTRITIONAL APPEARANCE: obese HENMT: COMMON NORMALS: oropharynx normal Eye: OTHER: Significant improvement in preseptal cellulitis and conjunctivitis of left eye, right eye completely resolved. Neck/C-Spine: COMMON NORMALS: no JVD Resp: COMMON NORMALS: normal respiratory effort and clear to auscultation bilaterally AUSCULTATION: clear to auscultation bilaterally Cardio: COMMON NORMALS: no JVD, regular rhythm, S1 normal heart sound present, S2 normal heart sound present and No murmurs present (Cardio) RHYTHM: regular rhythm HEART SOUNDS: S1 normal heart sound present and S2 normal heart sound present GI: COMMON NORMALS: Normal to inspection, nondistended, normoactive bowel sounds present, Soft to palpation and non-tender PALPATION: Yes Soft to palpation Extremity: COMMON NORMALS: no joint enlargement and no pedal edema Neuro: COMMON NORMALS: patient oriented x3 and moves all extremities Skin: COMMON NORMALS: no rashes or lesions noted GENERAL SKIN EXAM: no rashes or lesions noted LESIONS: lesion noted (No fresh lesions. Multiple healing lesions scattered at his body, different sizes, different stages of healing, with excoriations, some small ulcerations like on his dorsal hands, forearms about 5-8 mm in size, with shallow base, some with small amount of sloughing tissue, some with healing eschar, 1 is freshly scratched small amount of bleeding, with minimal surrounding erythema. Some lesions on his body are larger, including larger more circular appearing lesion on the left mormon with yellowish appearing eschar tissue without any drainage, without any significant depth to the lesion, no raised borders, no surrounding erythema. No drainage. Another larger lesion noted on left dorsal foot, irregularly shaped, about 6 centimeters,, at 1 large small dried blood, otherwise some yellowish eschar, without any drainage, not much surrounding erythema. No oral lesions. No genital lesions. One 2 cm scalp lesion with some shallow ulceration, yellowish eschar, no drainage noted on the head about 2 cm, another smaller 1 about 8 mm) Discharge Data Data Completed and Pending: Completed Studies During Hospitalization Category Date Time Status CT head wo con* [id number] Stat Cat Scan 11/25/19 13:[address] orbit BI w con [id number] Urgent Cat Scan 11/25/19 13:28 Completed Pending at discharge Category Date Time Status Blood Culture Sta t Lab 11/25/19 11:54 Results Eye Culture Stat Lab 11/25/19 12:50 Results Miscellaneous Kenzie t Routine Lab 11/26/19 14:20 Received US renal BI with bladder Routine Ultrasound 11/28/19 08:18 Ordered Labs from last 24 hours 11/28/19 11/28/19 11/27/19 04:20 04:20 12:52 WBC 7.5 RBC 4.48 Hgb 12.2 Hct 37.1 L MCV 82.8 MCH 27.2 L MCHC 32.9 RDW 13.1 Plt Count 218 MPV 11.1 H Neut % (Auto) 59.3 Lymph % (Auto) 23.4 [place] % (Auto) 13.1 Eos % (Auto) 1.5 Baso % (Auto) 0.7 Neut # (Auto) 4.45 Lymph # (Auto) 1.8 [place] # (Auto) 1.0 H Eos # (Auto) 0.1 Baso # (Auto) 0.1 Nucleated RBC % (a uto) 0 Nucleated RBCs # 0.0 Sodium 140 Potassium 3.4 L Chloride 105 Carbon Dioxide 23 Anion Gap 15.4 BUN 16 Creatinine 2.8 H GFR Calculation 24.1 L Glucose 212 H Calculated Osmolal ity 297 H Calcium 9.3 Total Bilirubin 0.4 AST 24 ALT 20 Alkaline Phosphata se 130 Total Protein 6.6 Albumin 3.3 L Globulin 3.3 Vancomycin Trough 31.8 H* Vitals: Last Vital Signs Temp 97.9 F 11/28/19 12:00 Pulse 67 11/28/19 12:00 Resp 18 11/28/19 12:00 BP 161/92 11/28/19 12:00 Pulse Ox 96 11/28/19 12:00 Discharge Plan Discharge Patient Disposition: Left Against Medical Advice Condition: Stable Prescriptions: New folic acid 1 mg Tablet 1 mg PO DAILY Qty: 30 RF: 0 Thera 400 mcg Tablet 1 tab PO DAILY Qty: 30 RF: 0 thiamine mononitrate (vit B1) [Vitamin B-1 (mononitrate)] 100 mg Tablet 100 mg PO DAILY Qty: 30 RF: 0 ciprofloxacin HCl 0.3 % Drops 1 drp eye-left QID 7 Days Qty: 2.5 RF: 0 levofloxacin 750 mg tablet 750 mg PO Q48H 7 Days Qty: 4 RF: 0 Held phentermine 37.5 mg Tablet 37.5 mg PO DAILY RF: 0 Hold Instructions: Resume on 12/19/19. Discontinued naproxen 2 tab PO PRN RF: 0 Discharge Orders: Discharge Order (Routine); Ordered 11/28/19 Ordered By: Rad Grewal Referrals: Your, PCP [Other] [facility] [Provider Group] - 4-7 days (Preseptal cellulitis, conjunctivitis) [facility] Julien FNP [Nurse Practitioner] - 4-7 days Discharge Diet: Cardiac Discharge Activity: Increase activity as tolerated Activity Restrictions/Additional Instructions: Please be advised that work-up and treatment for your condition is not complete. You have acute kidney injury with creatinine that has been rising (renal function getting worse), you also have still not completely treated infection which requires additional IV antibiotics. By leaving prematurely you exposure self to risk of worsening of your condition, additional complications, including complications that may lead to long-term disability or . Please return to the emergency department at any time to resume your care, there would be no repercussions to doing so. Otherwise please seek as soon as possible follow-up with your primary care provider. You are also referred to see an commissioner of conciliation. Please avoid any NSAIDs like naproxen/Aleve, ibuprofen, etc. as due to kidney injury these medications can cause further renal failure. Please abstain from any methamphetamine use as this may exacerbate your skin condition, lead to worse wounds, infection and other severe complications. Please work with exterminators to assess and treat any insects that may be in your house. Please avoid scratching any wounds or putting any objects or fingers in your eye as this may again introduce infection, lead to open wounds and worsen your condition. If you run into issues with more itching, wounds, fever or other signs of infection please seek medical attention immediately. Discharge Date/Time: 11/28/19 12:45 Discharge Attestations Time Spent in Discharge Care*: greater than 30 min Quality Metrics Clinical Quality Measures During this hospital stay, did patient experience: None Coding Level of Care Code Acute Nurse Educator for [facility] Fwd Exam Comprehensive Diagnoses Preseptal cellulitis L03.213 NANCY (acute kidney injury) N17.9 Conjunctivitis H10.9 Skin lesions L98.9 Formication R20.2 Leukocytosis D72.829 HTN (hypertension) I10 Hypokalemia E87.6 Drug use F19.90
--- NOTE | 2019-11-28 13:16 | PC.SOCIAL ---
Addendum entered by Izabela Eldridge RN 11/28/19 13:19: Updated Dr Grewal Original Note: Patient adamant about leaving today. Dr Grewal asked that a primary care appt be set up for patient. Patient is resistant to talking since wants to return home but was able to get him to agree to establish. He can only go on Fridays. Appointment made with Salinas KARIMI at [facility] for 12/05/2019 at 1:45pm. Will call patient at [phone] number provided by patient on Sunday with appt.
[2019-11-28 14:27] VITALS: BP 161/92; PULSE 67; RESP 18; TEMP 36.6; O2SAT 96
--- NOTE | 2019-12-01 16:35 | PC.SOCIAL ---
Was able to reach patient to update on appt scheduled with Sonny Julien on 12/04 at 1:45pm. He indicates may need to change. Provided the phone number so he can coordinate appt to fix needs and ask about copay. He verbalized understanding.
== END 2019-11-28 12:45 | disposition left against medical advice (07) | DRG 603 ==
LOC: ER 12:33 → MEDSURG 17:51
PROVIDERS: Emergency Medicine; Admitting Provider Internal Medicine; Visit Provider Internal Medicine
DX: L03.213 Periorbital cellulitis (principal); N17.9 Acute kidney failure, unspecified; Z68.42 Body mass index [BMI] 45.0-49.9, adult; Z16.11 Resistance to penicillins; I10 Essential (primary) hypertension; E87.6 Hypokalemia; R20.2 Paresthesia of skin; L98.9 Disorder of the skin and subcutaneous tissue, unspecified; E66.9 Obesity, unspecified; H10.9 Unspecified conjunctivitis; B95.61 Methicillin susceptible Staphylococcus aureus infection as the cause of diseases classified elsewhere; Z53.29 Procedure and treatment not carried out because of patient's decision for other reasons; F12.10 Cannabis abuse, uncomplicated; F15.10 Other stimulant abuse, uncomplicated
CPT/HCPCS: 12345; 36415; 36416; 70450; 70481; 80053; 80202; 80306; 80307; 81003; 82962; 83605; 85025; 85651; 86140; 87040; 87070; 87077; 87186; 87641; 96372; 96375; 99284; G0378; J0696; J1630; J2543; J3370; J3411; J7040; J7050; Q9967

== ENCOUNTER 2025-02-14 13:25 | Inpatient (IN) | payer MEDICAID, SELFPAY ==
[2025-02-14] VITALS (9 sets, daily range): BP systolic 160–209; BP diastolic 95–102; PULSE 55–80; RESP 16–18; TEMP 36.4–36.7; O2SAT 96–100; BMI 30.4
--- NOTE | 2025-02-14 13:20 | XRR_ITS ---
PROCEDURE INFORMATION: Exam: XR Chest Exam date and time: 02/14/2025 1:32 PM Age: 54 years old Clinical indication: Other: Weakness; Additional info: Weakness; Stroke like symptoms TECHNIQUE: Imaging protocol: Radiologic exam of the chest. Views: 1 view. COMPARISON: No relevant prior studies available. FINDINGS: Lungs: No focal consolidation. Pleural spaces: No evidence of pneumothorax. No evidence of pleural effusion. Heart/Mediastinum: Cardiomediastinal silhouette is within normal limits. Bones/joints: No evidence of acute osseous abnormality. XR/XR chest 1V portable [id number] IMPRESSION: 1. No acute cardiopulmonary abnormality.
--- NOTE | 2025-02-14 13:20 | CTR_ITS ---
PROCEDURE INFORMATION: Exam: CT Head Without Contrast Exam date and time: 02/14/2025 1:23 PM Age: 54 years old Clinical indication: Stroke-like symptoms; Altered mental status/memory loss; Additional info: Symptoms of acute stroke TECHNIQUE: Imaging protocol: Computed tomography of the head without contrast. Radiation optimization: All CT scans at this facility use at least one of these dose optimization techniques: automated exposure control; mA and/or kV adjustment per patient size (includes targeted exams where dose is matched to clinical indication); or iterative reconstruction. Other technique: STROKE PROTOCOL was implemented. COMPARISON: CT head wo con* [id number] 11/25/2019 1:36 PM RADIATION DOSE METRICS: Total DLP (mGy-cm): 1104.88 FINDINGS: Brain: Large acute-subacute infarct involving the left cerebellar hemisphere and extending into the cerebellar vermis. There is involvement of all three cerebellar vascular territories on the left. There is associated gyral edema and mild-moderate mass effect with partial effacement of the 4th ventricle. No evidence of hydrocephalus at this time. No evidence of intra-axial or extra-axial hemorrhage. Basilar cisterns are patent. Sequela of moderate chronic microvascular ischemic changes with multiple chronic holliday radiata/basal ganglia lacunar infarcts. Paranasal sinuses: The visualized paranasal sinuses are well aerated. Mastoid air cells: The visualized mastoids and middle ears are clear. Bones: Calvarium is intact. No evidence of acute fracture. Soft tissues: No gross soft tissue abnormality. CT/CT head thrombolytic [id number] IMPRESSION: 1. Large acute-subacute cerebellar infarct. The findings were verbally communicated by telephone with Dr. BEEBE at 1:36 PM FRUIT AND VEGETABLE PACKER on 02/14/2025. ASSESSMENT: ASPECTS ([place] Stroke Program Early CT Score) is 10.
--- OUTSIDE RECORDS SUMMARY | 2025-02-14 13:28 | XMS_ITS | Patient Health Record ---
Author Organization [facility] Address [address] [place] [address] Care Team Providers Care Store Coordinator Name Role Phone MR. GABI MONZON Unavailable [phone] Allergies Allergen (clinical drug ingredient) Drug/Non Drug Allergy documented on EMR Reaction Allergy Type Onset Date Status codeine codiene (uncoded) Unknown Allergy Ac tive Reason For Referral No Information Medications Medication SIG (Take, Route, Frequency, Duration) Notes Start Date End Date Status Indomethacin 50 MG Capsule 1 capsule wit h food Orally Twice a day; Duration: 30 day(s) 05/27/2012 Active Social History Social History Additional Details Category Social Info Options Details Social History Occupational Exposure none Recreational drug use: no Caffeine: no Exercise yes Sexual HX: not active no history of se xual disease Problems Problem Type SNOMED Code ICD Code Onset Dates Problem Status W/U Status Risk Notes Problem Knee pain (6328403516) Knee pain (719.46) Active confirmed Plan Of Treatment No Information Insurance Providers Payer Name Payer Address Payer Phone Subscriber Number Group Number Insured Name Patient Relationship to Insured Coverage Start Date Coverage End Date [employer] [address] [place] [address] [id number] JEFRY JONES Self - patient is the insured Medical (General) History Medical History History ICD Code Gout
--- NOTE | 2025-02-14 13:33 | ECG_ITS ---
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
--- NOTE | 2025-02-14 13:46 | ED_ITS ---
HPI - Neuro Symptoms/Deficit 2 General: Chief Complaint: Neuro Symptoms/Deficit Stated Complaint: left facial droop; slurred speech Time Seen by Provider: 02/14/25 13:25 Source: patient and EMS Mode of arrival: EMS Limitations: no limitations History of Present Illness: 54-year-old male is here with EMS states he been having severe dizziness over the last 2 days. Per EMS patient is not been able to get out of bed due to feeling dizzy and having some nausea. Per EMS patient did have a left-sided facial droop and when he tried to stand him he was extremely ataxic. Patient had some mild slurred speech as well. He denies any headaches states that he just feels extremely dizzy. Denies any worse or improved factors. Associated symptoms: Reports vomiting Related Data Home Medications ?Medication ?Instructions ?Recorded ?Confirmed No Known Home Medications 02/14/2501/20 Allergies Allergy/AdvReac Type Severity Reaction Status Date / Time codeine Allergy ADR-Vomitin Verified 11/25/19 12:43 g Review of Systems 2 GI: Reports: vomiting PFSH ED 2 PFSH: Medical History (Updated 02/14/25 @ 14:14 by James Beebe MD) Psychiatric care Obesity Surgical History History of ankle surgery Family History Other No significant family history Social History Smoking and tobacco/nicotine status: never used tobacco/nicotine Alcohol intake: current Alcohol intake frequency: holidays/special occasions only Substance/Drug Use: current Other substance/drug use details: Admits to using methamphetamine, although says has not used in a while, then says perhaps may be used some recently, is not sure. Says previously was snorting. Lives independently: Yes Household members: spouse Housing: House Marital status: Current occupational status: employed NIH stroke score 2 NIHSS: Level Of Consciousness - 1a: 0 Level Of Consciousness Questions - 1b: Both Correct Level Of Consciousness Commands - 1c: Both Correct Best Gaze - 2: Partial Gaze Palsy Visual Ontiveros - 3: No Visual Loss Facial Palsy - 4: Minor Paralysis Motor Arm Right - 5: No Drift Motor Arm Left - 5: No Drift Motor Leg Right - 6: No Drift Motor Leg Left - 6: No Drift Limb Ataxia - 7: Present In One Limb Sensory - 8: Normal Best Language - 9: No Aphasia Dysarthia - 10: Mild/Moderate Dysarthia Extinction And Inattention - 11: 0 Score: Total Score: 4 Physical Exam 2 Const: COMMON NORMALS: no acute distress, patient oriented x3 and healthy appearing HENMT: COMMON NORMALS: normocephalic and atraumatic HEAD & SCALP: n ormocephalic and atraumatic Eye: OTHER: Partial gaze palsy when looked in the right does have nystagmus Neck/C-Spine: COMMON NORMALS: full ROM and supple Chest: COMMONS NORMALS: normal inspection of the chest Resp: COMMON NORMALS: normal respiratory effort, No retractions, No use of accessory muscles and clear to auscultation bilaterally AUSCULTATION: clear to auscultation bilaterally Cardio: COMMON NORMALS: regular rate, regular rhythm and No murmurs present (Cardio) RATE: regular rate RHYTHM: regular rhythm Extremity: COMMON NORMALS: normal to inspection and full ROM Neuro: COMMON NORMALS: patient oriented x3 and moves all extremities S PEECH: abnormal speech Details: slurred GAIT: Yes Ataxic gait present and Yes Staggering gait present MOTOR EXAM: 5/5 motor strength present throughout Psych: COMMON NORMALS: mental status grossly normal, Normal thought process present and cooperative THOUGHT PROCESS: Normal thought process present Skin: COMMON NORMALS: no rashes or lesions noted and no wounds GENERAL SKIN EXAM: no rashes or lesions noted Course 2 Vital Signs: Vital signs: Vital Signs Temperature 97.8 F 02/14/25 13:33 Pulse Rate 56 L 02/14/25 13:53 Respiratory Rate 16 02/14/25 13:53 Blood Pressure 188/98 02/14/25 13:53 Pulse Oximetry 96 02/14/25 13:53 Oxygen Delivery Me thod Room Air 02/14/25 13:53 MDM - Neuro Symptoms/Deficit Medical Decision Making Patient presents here with severe dizziness symptoms going on for 2 days differential includes cerebral hemorrhage versus CVA versus peripheral cause for vertigo patient's head CT here does show a cerebellar stroke likely causing his symptoms patient is out of the window for any treatment last known normal was 2 days ago which is consistent with the acuity of the finding on CT scan. Not a lytic candidate due to timing. Did give him aspirin here spoke to hospitalist Dr. Ford and will admit at this time. EKG interpreted by me at 1333 sinus bradycardia heart rate [address] elevation QRS 96 QTc 490 Medical Records I reviewed the patient's medical records. Lab Data I reviewed the patient's lab results. 02/14/25 13:41 02/14/25 13:[address] 02/14/25 13:20 IMPRESSION: 1. Large acute-subacute cerebellar infarct. The findings were verbally communicated by telephone with Dr. BEEBE at 1:36 PM GARMENT PATTERNMAKER on 02/14/2025. ASSESSMENT: ASPECTS ([place] Stroke Program Early CT Score) is 10. Laboratory Results WBC 13.39 10^3/uL (3.29-11.43) H 02/14/25 13:41 RBC 4.99 10^6/uL (3.85-5.65) 02/14/25 13:41 Hgb 13.50 g/dL (11.27-16.99) 02/14/25 13:41 Hct 40.4 % (37-53) 02/14/25 13:41 MCV 81.0 fl (82-101) L 02/14/25 13:41 MCH 27.1 pg (27-33) 02/14/25 13:41 MCHC 33.4 g/dL (30-55) 02/14/25 13:41 RDW 13.2 % (12.1-15.1) 02/14/25 13:41 Plt Count 250 10^3/cmm (157-399) 02/14/25 13:41 MPV 10.3 fL (7.4-10.4) 02/14/25 13:41 Neut % (Auto) 81.1 % 02/14/25 13:41 Lymph % (Auto) 12.6 % 02/14/25 13:41 [place] % (Auto) 5.5 % 02/14/25 13:41 Eos % (Auto) 0.1 % 02/14/25 13:41 Baso % (Auto) 0.1 % 02/14/25 13:41 Neut # (Auto) 10.85 10^3/uL (1.8-7.7) H 02/14/25 13:41 Lymph # (Auto) 1.7 10^3/uL (0.8-4.8) 02/14/25 13:41 [place] # (Auto) 0.7 10^3/uL (0.2-0.9) 02/14/25 13:41 Eos # (Auto) 0.0 10^3/uL (0.0-0.8) 02/14/25 13:41 Baso # (Auto) 0.0 10^3/uL (0.0-0.1) 02/14/25 13:41 Nucleated RBC % (auto) 0 % 02/14/25 13:41 Nucleated RBCs # 0.0 /100WBC 02/14/25 13:41 PT 14.40 SECONDS (12.1-14.9) 02/14/25 13:41 INR 1.04 (0.8-1.2) 02/14/25 13:41 APTT 31.3 SECONDS (23.9-36.7) 02/14/25 13:41 Sodium 137 mmol/L (136-145) 02/14/25 13:41 Potassium 4.1 mmol/L (3.5-5.1) 02/14/25 13:41 Chloride 102 mmol/L (98-107) 02/14/25 13:41 Carbon Dioxide 23 mmol/L (22-29) 02/14/25 13:41 Anion Gap 16.1 (5-19) 02/14/25 13:41 BUN 14 mg/dL (6-20) 02/14/25 13:41 Creatinine 0.9 mg/dL (0.7-1.2) 02/14/25 13:41 GFR Calculation 87.6 mL/min (90-130) L 02/14/25 13:41 Glucose 169 mg/dL (65-115) H 02/14/25 13:41 Calculated Osmolality 288 mOsm/kg (285-295) 02/14/25 13:41 Calcium 9.3 mg/dL (8.5-10.5) 02/14/25 13:41 Total Bilirubin 0.4 mg/dL (0.15-1.2) 02/14/25 13:41 AST 11 U/L (0-40) 02/14/25 13:41 ALT 8 U/L (0-41) 02/14/25 13:41 Alkaline Phosphatase 131 U/L (40-130) H 02/14/25 13:41 Total Protein 7.2 g/dL (6.6-8.7) 02/14/25 13:41 Albumin 4.1 g/dL (3.5-5.2) 02/14/25 13:41 Globulin 3.1 g/dL (1.3-4.6) 02/14/25 13:41 Lipase 14 U/L (13-60) 02/14/25 13:41 All radiology interpretation(s) finalized by discharge Discharge Plan Discharge Patient Disposition: Admitted As Inpatient Clinical Impression: Cerebrovascular accident Condition: Stable Coding Level of Care Code ED Theatrical Scenic Designer for Doug Parry
[2025-02-14 13:47] LABS: Hematocrit 40.4 % (37-53); Hemoglobin 13.50 g/dL (11.27-16.99); Mean Corpuscular HGB Conc 33.4 g/dL (30-55); Mean Corpuscular Hemoglobin 27.1 pg (27-33); Mean Corpuscular Volume 81.0 fl (82-101); Nucleated Red Blood Cells % 0 %; Platelet Count 250 10^3/cmm (157-399); Red Blood Count 4.99 10^6/uL (3.85-5.65); White Blood Count 13.39 10^3/uL (3.29-11.43)
[2025-02-14 14:03] LABS: INR 1.04 (0.8-1.2); Prothrombin Time 14.40 SECONDS (12.1-14.9)
[2025-02-14 14:04] LABS: Partial Thromboplastin Time 31.3 SECONDS (23.9-36.7)
[2025-02-14 14:07] LABS: Alanine Aminotransferase 8 U/L (0-41); Albumin Level 4.1 g/dL (3.5-5.2); Alkaline Phosphatase 131 U/L (40-130); Anion Gap 16.1 (5-19); Aspartate Amino Transferase 11 U/L (0-40); Blood Urea Nitrogen 14 mg/dL (6-20); Calcium 9.3 mg/dL (8.5-10.5); Carbon Dioxide 23 mmol/L (22-29); Chloride 102 mmol/L (98-107); Globulin 3.1 g/dL (1.3-4.6); Glucose 169 mg/dL (65-115); Lipase 14 U/L (13-60); Osmolality Calculated 288 mOsm/kg (285-295); Potassium 4.1 mmol/L (3.5-5.1); Sodium 137 mmol/L (136-145); Total Protein 7.2 g/dL (6.6-8.7)
[2025-02-14] MEDS: ondansetron 2 mg/ML SDV 2 mL 4 MG IVP (14:55)
--- NOTE | 2025-02-14 16:18 | PC.NURSE ---
pt failed dysphagia screen provider informed, PO meds held will give meds IV
--- NOTE | 2025-02-14 16:56 | PC.NURSE ---
pt urinated 700ml in urinal bed changed
--- NOTE | 2025-02-14 17:40 | P.HP_ITS ---
Providers/Chief Complaint 2 Admitting Physician: Mervin Kc MD Chief Complaint: Dizziness.Lleft facial droop. Slurred speech. History of Present Illness Grzegorz Bess is a 54 year old male with PMH of HTN, obesity, and recreational drug use (methamphetamine, marijuana). Patient presented to [facility] ED on 02/14/2025 with a 2-day history of persistent, severe dizziness resulting in inability to ambulate or get out of bed. Symptoms have been persistent and associated with nausea (no vomiting). Associated symptoms of left-sided facial droop, left field visual loss, slurred speech, ataxia on initial exam by EMS. Last known well ~ 48 hours prior to presentation, placing patient outside the window for thrombolytic therapy. Non- contrasted CT of the head revealed a large acute-subacute cerebellar infarct. Patient denies headache, change in vision, nausea, vomiting, chest pain shortness of breath. States he has been experiencing a productive cough with green purulence in the past week. Reports experiencing frequent palpitations. Reports having elevated blood pressure for at least 3 years, which is untreated. Admits to substance use history, meth (last use 6 months ago) and remote use of cannabis. ED course and workup reviewed Presenting VS, 02/14/25 1333 T 97.8 BP 204/99 HR 58 RR 18 SpO2 97% on room air Labs, 02/14/25 1341 Hemogram WBC 13.39 RBC 4.99 PLT 250 HGB 13.5 HCT 40.4 Coags PT 14.4 INR 1.04 aPTT 31.3 Chemistry Na 137 K 4.1 Cl 102 Ca 9.3 Glu 169 CO2 23 AG 16.1 BUN 14 Cr 0.9 eGFR 87.6 AST 11 ALT 8 ALP [address] Head: large acute?subacute cerebellar infarct CXR: No acute cardiopulmonary abnormality Review of Systems 2 General: Reports: 10 or more systems reviewed and unremarkable except in HPI and below Medications/Allergies Home Medications ?Medication ?Instructions ?Recorded ?Confirmed ?Last Taken ?Type No Known Home Medications 02/14/2501/20 Unknown History Allergies Allergy/AdvReac Type Severity Reaction Status Date / Time codeine Allergy ADR-Vomitin Verified 11/25/19 12:43 g Additional Medication Information Patient states he does not take any prescribed medications or supplements at home. PFSH Acute 2 PFSH: Medical History Psychiatric care Obesity Surgical History History of ankle surgery Family History Other No significant family history Social History Smoking and tobacco/nicotine status: never used tobacco/nicotine Alcohol intake: current Alcohol intake frequency: holidays/special occasions only Substance/Drug Use: current Other substance/drug use details: Admits to using methamphetamine, although says has not used in a while, then says perhaps may be used some recently, is not sure. Says previously was snorting. Lives independently: Yes Household members: spouse Housing: House Marital status: Current occupational status: employed Other PFS information: Supplemental [facility] Information: Father () - heart disease, OR, stroke Mother () -breast cancer with mets to the brain Admits to prior recreational drug use methamphetamine use, last use 6 months ago Cannabis, last use unknown, patient notes to be remote Vitals/I&O/Wt Last Vital Signs Temp 97.6 F 02/14/25 17:22 Pulse 59 L 02/14/25 17:22 Resp 18 02/14/25 17:22 BP 209/99 02/14/25 17:22 Pulse Ox 100 02/14/25 17:22 O2 Del Method Room Air 02/14/25 17:22 Weight last 48 hrs Weight 85.729 kg Weight 85.729 kg Physical Exam 2 Narrative: Constitutional * NAD Neurologic * Awake and alert. Oriented x3 0 * Notes correct month and age 0 * Able to follow simple commands 0 * Partial gaze palsy +1 * partial hemianopia +1 * Unilateral upper and lower face paralysis 3+ * Left arm no drift 0 * Right arm no drift 0 * Left leg no drift 0 * Right leg no drift 0 * limb ataxia present in 1 limb, [id number] 1+ * no sensory loss 0 * No aphasia 0 * Mild to moderate dysarthria 1+ * Visual inattention 1+ * Total NIHSS 8 Head * Normocephalic. Atraumatic. Eyes * PERRLA. Left gaze palsy noted Ears, Nose, Throat * Normal external ears. Hearing intact to normal voice. * Normal external nose. No epistaxis. * Facial asymmetry. Able to manage secretions. Respiratory * Diminished * No dyspnea at rest or with conversation. No accessory muscle use. * On room air. Heart / Cardiovascular * Regular * No murmur Extremities * No edema bilaterally * Distal pulses 1+ * Sensation intact to light touch. Abdomen / Gastrointestinal * Soft. Non-tender. Non-distended. + BS. Genitourinary * No suprapubic Musculoskeletal * No focal TTP over major joint or long bones * Full ROM in all major joints without pain * Strength 5/5 throughout in bilateral upper and lower extremities Skin / Integumentary * No rashes, lesions, petechiae / ecchymosis, ulcerations or open wounds. Data 02/14/25 13:41 02/14/25 13:41 Other Labs: I have personally reviewed below listed labs that were done in ED on presentation. Labs, 02/14/25 1341 Hemogram WBC 13.39 RBC 4.99 PLT 250 HGB 13.5 HCT 40.4 Coags PT 14.4 INR 1.04 aPTT 31.3 Chemistry Na 137 K 4.1 Cl 102 Ca 9.3 Glu 169 CO2 23 AG 16.1 BUN 14 Cr 0.9 eGFR 87.6 AST 11 ALT 8 ALP 131 T.Bili 0.4 Lipase 14 CXR: Radiologist's impression: Exam: XR Chest Exam date and time: 02/14/2025 1:32 PM Age: 54 years old Clinical indication: Other: Weakness; Additional info: Weakness; Stroke like symptoms . COMPARISON: No relevant prior studies available. FINDINGS: Lungs: No focal consolidation. Pleural spaces: No evidence of pneumothorax. No evidence of pleural effusion. Heart/Mediastinum: Cardiomediastinal silhouette is within normal limits. Bones/joints: No evidence of acute osseous abnormality. IMPRESSION: No acute cardiopulmonary abnormality. CT Head: Radiologist's impression: Exam: CT Head Without Contrast Exam date and time: 02/14/2025 1:23 PM Age: 54 years old Clinical indication: Stroke-like symptoms; Altered mental status/memory loss; Additional info: Symptoms of acute stroke COMPARISON: CT head wo con* [id number] 11/25/2019 1:36 PM FINDINGS: Brain: Large acute-subacute infarct involving the left cerebellar hemisphere and extending into the cerebellar vermis. There is involvement of all three cerebellar vascular territories on the left. There is associated gyral edema and mild-moderate mass effect with partial effacement of the 4th ventricle. No evidence of hydrocephalus at this time. No evidence of intra-axial or extra- axial hemorrhage. Basilar cisterns are patent. Sequela of moderate chronic microvascular ischemic changes with multiple chronic holliday radiata/basal ganglia lacunar infarcts. Paranasal sinuses: The visualized paranasal sinuses are well aerated. Mastoid air cells: The visualized mastoids and middle ears are clear. Bones: Calvarium is intact. No evidence of acute fracture. Soft tissues: No gross soft tissue abnormality. IMPRESSION: Large acute-subacute cerebellar infarct. A&P Assessment and plan 1. Cerebellar stroke: 2. 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 Consult HYDRAULIC LIFT DRIVER for swallow evaluation. - Consult case management for stroke d/c planning - VTE PPx w/ SCDs # Hypertensive urgency Patient reports at least a 3-year history of uncontrolled hypertension STEAM FITTER HELPER untreated - Allowing permissive HTN - started on amlodipine and losartan earlier, BP still elevated - will give hydralazine 10-20 mg Q4H prn for SBP > 220 and/or DBP > 120 # Dysarthria #Dysphagia - keep NPO - HYDRAULIC LIFT DRIVER consulted for formal swallow evaluation PDMP PDMP Reviewed: Not Reviewed Attestations 2 Medical Necessity Statement*: Admitted under inpatient status. Given complexity of patient's presentation, co-morbid conditions, and required intensity of treatment, a hospitalization exceeding two midnights is anticipated. Coding Level of Care Code 60048 Diagnoses Cerebellar stroke I63.9 Hypertensive urgency I16.0
--- NOTE | 2025-02-14 22:54 | PC.NURSE ---
Patient has been removing telemetry since shift change. Nurse attempted to educate patient on importance of telemetry monitoring. Patient still continued to remove.
[2025-02-15] VITALS: BP 167/95; PULSE 91; RESP 16; TEMP 36.8; O2SAT 95
[2025-02-15 04:00] VITALS: BP 159/90; PULSE 92; RESP 18; TEMP 37; O2SAT 97
--- NOTE | 2025-02-15 04:42 | PC.NURSE ---
Patient NPO due [facility] DARBY Pina. This nurse contacted Dr. Penny about patients NPO status. Dr. Penny instructed nurse to hold 0500 medications.
[2025-02-15 05:10] LABS: Estmated Average Glucose 103; Hemoglobin A1C 5.2 % (4.0-6.0)
[2025-02-15 05:21] LABS: Cholesterol 185 mg/dL (0-200); HDL Cholesterol 35 mg/dL (60-100); Triglycerides 110 mg/dL (0-150)
[2025-02-15 05:39] VITALS: BMI 29.7
--- NOTE | 2025-02-15 06:00 | CTR_ITS ---
PROCEDURE INFORMATION: Exam: CTA Head With Contrast, Arteriography Exam date and time: 02/15/2025 9:10 AM Age: 54 years old Clinical indication: Other: Left facial weakness, dysarthria, acute cerebellar CVA; Additional info: Left facial weakness, dysarthria, acute cerebellar CVA on cth, CT angiogram cervical and intracranial vessels TECHNIQUE: Imaging protocol: Computed tomographic angiography of the head with contrast. Exam focused on the arteries. 3D rendering (Not supervised by radiologist): MIP and/or 3D reconstructed images were created by the technologist. Radiation optimization: All CT scans at this facility use at least one of these dose optimization techniques: automated exposure control; mA and/or kV adjustment per patient size (includes targeted exams where dose is matched to clinical indication); or iterative reconstruction. Contrast material: OMNI 350; Contrast volume: 100 ml; Contrast route: INTRAVENOUS (IV); COMPARISON: CT head thrombolytic [id number] 02/14/2025 1:23 PM RADIATION DOSE METRICS: Total DLP (mGy-cm): 1041.88 FINDINGS: ANTERIOR CIRCULATION: Right internal carotid artery: Intracranial segment is patent with no significant stenosis. No aneurysm. Right middle cerebral artery: No occlusion or significant stenosis. No aneurysm. Right anterior cerebral artery: No occlusion or significant stenosis. No aneurysm. Left internal carotid artery: Intracranial segment is patent with no significant stenosis. No aneurysm. Left middle cerebral artery: No occlusion or significant stenosis. No aneurysm. Left anterior cerebral artery: No occlusion or significant stenosis. No aneurysm. POSTERIOR CIRCULATION: Right vertebral artery: No occlusion or significant stenosis. No aneurysm. Left vertebral artery: No occlusion or significant stenosis. No aneurysm. Basilar artery: No occlusion or significant stenosis. No aneurysm. Right posterior cerebral artery: No occlusion or significant stenosis. No aneurysm. Left posterior cerebral artery: No occlusion or significant stenosis. No aneurysm. Brain: No significant change in the large left acute/subacute cerebellar infarct which extends to the cerebellar vermis. Overall appearance is unchanged compared with the prior exam of 02/14/2025. Cerebral ventricles: No ventriculomegaly. Bones/joints: Unremarkable. No acute fracture. Soft tissues: Unremarkable. PROCEDURE INFORMATION: Exam: CTA Neck With Contrast Exam date and time: 02/15/2025 9:10 AM Age: 54 years old Clinical indication: Other: Left facial weakness, dysarthria, acute cerebellar CVA; Additional info: Left facial weakness, dysarthria, acute cerebellar CVA on cth, CT angiogram cervical and intracranial vessels TECHNIQUE: Imaging protocol: Computed tomographic angiography of the neck with contrast. Exam focused on the cervical segments of the vasculature. 3D rendering (Not supervised by radiologist): MIP and/or 3D reconstructed images were created by the technologist. Radiation optimization: All CT scans at this facility use at least one of these dose optimization techniques: automated exposure control; mA and/or kV adjustment per patient size (includes targeted exams where dose is matched to clinical indication); or iterative reconstruction. Contrast material: OMNI 350; Contrast volume: 100 ml; Contrast route: INTRAVENOUS (IV); COMPARISON: CT head thrombolytic [id number] 02/14/2025 1:23 PM RADIATION DOSE METRICS: Total DLP (mGy-cm): 1041.88 FINDINGS: Right common carotid artery: No stenosis. No dissection or occlusion. Right internal carotid artery: No stenosis of the extracranial segment. No dissection or occlusion. Right external carotid artery: No occlusion or stenosis of the origin. Left common carotid artery: No stenosis. No dissection or occlusion. Left internal carotid artery: No stenosis of the extracranial segment. No dissection or occlusion. Left external carotid artery: No occlusion or stenosis of the origin. Right vertebral artery: No stenosis. No dissection or occlusion. Left vertebral artery: No stenosis. No dissection or occlusion. Soft tissues: Normal. No significant soft tissue swelling. Bones/joints: No acute fracture. There is degenerative spondylosis of the spinal column. CT/CT angio headneck* [id number] IMPRESSION: 1. No large vessel stenosis or occlusion. 2. No significant change in the large left cerebellar subacute/acute infarct. IMPRESSION: No stenosis or occlusion. REFERENCES: NASCET CRITERIA. The degree of stenosis in the cervical segment of the internal carotid artery is based on NASCET criteria. Normal is no stenosis. Mild is less than 50% stenosis. Moderate is 50-69% stenosis. Severe is 70% to 99% stenosis. Total occlusion is no detectable patent lumen.
[2025-02-15 08:00] VITALS: BP 156/86; PULSE 88; RESP 18; TEMP 36.9; O2SAT 94
--- NOTE | 2025-02-15 08:00 | MRR_ITS ---
PROCEDURE INFORMATION: Exam: MR Head Without and With Contrast Exam date and time: 02/15/2025 9:25 AM Age: 54 years old Clinical indication: Altered mental status/memory loss and speech disturbance and walking, difficulty; Confusion or disorientation; Dysphasia; Additional info: CVA work-up TECHNIQUE: Imaging protocol: Magnetic resonance imaging of the head without and with contrast. Contrast material: MULTIHANCE; Contrast volume: 18 ml; Contrast route: INTRAVENOUS (IV); COMPARISON: CT angio headneck* [id number] 02/15/2025 9:10 AM FINDINGS: Brain: Acute posterior left posteroinferior cerebellar artery territory infarction involving the cerebellar vermis redemonstrated. Mild blood products are noted on gradient echo imaging in the inferior anterior left cerebellar hemisphere and vermis, not conspicuous on preceding CT. Acute right thalamic lacunar infarction redemonstrated. Chronic small cortical infarction medial right occipital lobe redemonstrated. Chronic lacunar infarctions left inferior caudate head, adjacent internal capsule/basal forebrain redemonstrated. Mild T2 hyperintensity in the lateral ventricular periventricular white matter bilaterally. No abnormal intracranial postcontrast enhancement. Ventricles: Left posterolateral partial effacement of the 4th ventricle redemonstrated. No interval hydrocephalus or evidence of supratentorial increased intracranial pressure. Bones: No acute abnormality identified. Paranasal sinuses: Normal as visualized. No acute sinusitis. Mastoid air cells: Normal as visualized. No mastoid effusion. Orbital cavities: Unremarkable. Soft tissues: Unremarkable. MR/MR head wo/w con [id number] IMPRESSION: 1. Left cerebellar and cerebellar vermis infarction with mild gyriform hemorrhage. 2. Acute right thalamic lacunar infarction redemonstrated. 3. Chronic small cortical infarction medial right occipital lobe redemonstrated. 4. Chronic lacunar infarctions left inferior basal ganglia/basal forebrain/capsular white matter redemonstrated. 5. Mild chronic microvascular ischemic white matter disease.
[2025-02-15 08:02] LABS: Hematocrit 40.4 % (37-53); Hemoglobin 13.70 g/dL (11.27-16.99); Mean Corpuscular HGB Conc 33.9 g/dL (30-55); Mean Corpuscular Hemoglobin 26.8 pg (27-33); Mean Corpuscular Volume 79.1 fl (82-101); Nucleated Red Blood Cells % 0 %; Platelet Count 289 10^3/cmm (157-399); Red Blood Count 5.11 10^6/uL (3.85-5.65); White Blood Count 15.20 10^3/uL (3.29-11.43)
[2025-02-15 08:04] LABS: Glucose Urine UA Trace (Normal); Nitrate Urine Negative (Negative); Specific Gravity, Urine 1.022 (1.005-1.030)
[2025-02-15 08:06] LABS: Add Urine Microscopic? YES
[2025-02-15 08:12] LABS: PCP Screen Urine Negative (Negative)
[2025-02-15 08:18] LABS: Alanine Aminotransferase 8 U/L (0-41); Albumin Level 4.4 g/dL (3.5-5.2); Alkaline Phosphatase 143 U/L (40-130); Aspartate Amino Transferase 17 U/L (0-40); Blood Urea Nitrogen 15 mg/dL (6-20); Calcium 9.3 mg/dL (8.5-10.5); Carbon Dioxide 21 mmol/L (22-29); Chloride 101 mmol/L (98-107); Globulin 3.0 g/dL (1.3-4.6); Glucose 135 mg/dL (65-115); Osmolality Calculated 291 mOsm/kg (285-295); Sodium 139 mmol/L (136-145); Total Protein 7.4 g/dL (6.6-8.7)
[2025-02-15 08:19] LABS: Anion Gap 21.2 (5-19); Potassium 4.2 mmol/L (3.5-5.1)
[2025-02-15] MEDS: iohexol 350 mg/mL 500 mL Btl (per mL) IV (09:17)
[2025-02-15 11:28] VITALS: BP 171/100; PULSE 78; RESP 18; TEMP 36.7; O2SAT 99
--- NOTE | 2025-02-15 11:49 | P.PN_ITS ---
Subjective 2 Subjective: Patient seen at bedside. He is sitting in a chair. Overnight had urinary retention and nursing placed Veloz catheter. Patient continues to have dysarthria, left facial droop, diminished vision in left field, and some left- sided neglect. Afebrile. Coughing. BP in permissive HTN range. Vitals/I&O/Wt Last Vital Signs Temp 98.1 F 02/15/25 11:28 Pulse 78 02/15/25 11:28 Resp 18 02/15/25 11:28 BP 171/100 02/15/25 11:28 Pulse Ox 99 02/15/25 11:28 O2 Del Method Room Air 02/15/25 04:00 02/14/25 02/15/25 02/15/25 22:59 06:59 14:59 Intake Total 670 / 670 Output Total 0 / 0 0 / 0 0 / 0 Balance 0 / 0 0 / 0 670 / 670 Weight last 48 hrs Weight 83.642 kg Weight 85.729 kg Weight 85.729 kg Physical Exam 2 Narrative: Constitutional * NAD Neurologic * Awake and alert. Oriented x2 0 * Notes correct month and age 2 * Able to follow simple commands 0 * Partial gaze palsy +1 * partial hemianopia +1 * Unilateral upper and lower face paralysis 3+ * Left arm no drift 0 * Right arm no drift 0 * Left leg no drift 0 * Right leg no drift 0 * limb ataxia present in 1 limb, [id number] 1+ * no sensory loss 0 * No aphasia 0 * Mild to moderate dysarthria 1+ * Visual inattention 1+ * Total NIHSS 10 Patient is overall less engaged. His change from yesterday is very subtle. Head * Normocephalic. Atraumatic. Eyes * PERRLA. Left gaze palsy noted Ears, Nose, Throat * Normal external ears. Hearing intact to normal voice. * Normal external nose. No epistaxis. * Facial asymmetry. Able to manage secretions. Respiratory * Diminished * No dyspnea at rest or with conversation. No accessory muscle use. * On room air. Heart / Cardiovascular * Regular * No murmur Extremities * No edema bilaterally * Distal pulses 1+ * Sensation intact to light touch. Abdomen / Gastrointestinal * Soft. Non-tender. Non-distended. + BS. Genitourinary * No suprapubic tenderness * Veloz catheter present (placed overnight for urinary retention) Musculoskeletal * No focal TTP over major joint or long bones * Full ROM in all major joints without pain * Strength 5/5 throughout in bilateral upper and lower extremities Skin / Integumentary * No rashes, lesions, petechiae / ecchymosis, ulcerations or open wounds. Urinary Catheter Management: Veloz: Cath Placed During This Visit: yes Urinary Catheter Date of Insertion: 02/15/25 Urinary Catheter Time of Insertion: 07:46 Data 02/15/25 04:18 02/15/25 04:18 Other Labs: I have personally reviewed below listed labs that were done in ED on presentation. Hemogram WBC 15.20 RBC 5.11 PLT 289 HGB 13.7 Chemistry Na 139 K 4.2 Cl 101 Ca 9.3 Glu 135 CO2 21 AG 21.2 BUN 15 Cr 1.o eGFR 77.6 Endocrine A1c 5.2% Lipid Chol 185 HDL 35 LDL 128 Trig 110 Urinalysis SG 1.022, protein (trace), glucose (trace) Toxicology UDS (-) CT ANGIO HEAD: Radiologist's impression: ANTERIOR CIRCULATION: Right internal carotid artery: Intracranial segment is patent with no significant stenosis. No aneurysm. Right middle cerebral artery: No occlusion or significant stenosis. No aneurysm. Right anterior cerebral artery: No occlusion or significant stenosis. No aneurysm. Left internal carotid artery: Intracranial segment is patent with no significant stenosis. No aneurysm. Left middle cerebral artery: No occlusion or significant stenosis. No aneurysm. Left anterior cerebral artery: No occlusion or significant stenosis. No aneurysm. POSTERIOR CIRCULATION: Right vertebral artery: No occlusion or significant stenosis. No aneurysm. Left vertebral artery: No occlusion or significant stenosis. No aneurysm. Basilar artery: No occlusion or significant stenosis. No aneurysm. Right posterior cerebral artery: No occlusion or significant stenosis. No aneurysm. Left posterior cerebral artery: No occlusion or significant stenosis. No aneurysm. Brain: No significant change in the large left acute/subacute cerebellar infarct which extends to the cerebellar vermis. Overall appearance is unchanged compared with the prior exam of 02/14/2025. Cerebral ventricles: No ventriculomegaly. Bones/joints: Unremarkable. No acute fracture. Soft tissues: Unremarkable. IMPRESSION: 1. No large vessel stenosis or occlusion. 2. No significant change in the large left cerebellar subacute/acute infarct. CT ANGIO NECK: Radiologist's impression: Right common carotid artery: No stenosis. No dissection or occlusion. Right internal carotid artery: No stenosis of the extracranial segment. No dissection or occlusion. Right external carotid artery: No occlusion or stenosis of the origin. Left common carotid artery: No stenosis. No dissection or occlusion. Left internal carotid artery: No stenosis of the extracranial segment. No dissection or occlusion. Left external carotid artery: No occlusion or stenosis of the origin. Right vertebral artery: No stenosis. No dissection or occlusion. Left vertebral artery: No stenosis. No dissection or occlusion. Soft tissues: Normal. No significant soft tissue swelling. Bones/joints: No acute fracture. There is degenerative spondylosis of the spinal column. IMPRESSION: No stenosis or occlusion. MRI HEAD w/wo: Radiologist's impression: Brain: Acute posterior left posteroinferior cerebellar artery territory infarction involving the cerebellar vermis redemonstrated. Mild blood products are noted on gradient echo imaging in the inferior anterior left cerebellar hemisphere and vermis, not conspicuous on preceding CT. Acute right thalamic lacunar infarction redemonstrated. Chronic small cortical infarction medial right occipital lobe redemonstrated. Chronic lacunar infarctions left inferior caudate head, adjacent internal capsule/basal forebrain redemonstrated. Mild T2 hyperintensity in the lateral ventricular periventricular white matter bilaterally. No abnormal intracranial postcontrast enhancement. Ventricles: Left posterolateral partial effacement of the 4th ventricle redemonstrated. No interval hydrocephalus or evidence of supratentorial increased intracranial pressure. Bones: No acute abnormality identified. Paranasal sinuses: Normal as visualized. No acute sinusitis. Mastoid air cells: Normal as visualized. No mastoid effusion. Orbital cavities: Unremarkable. Soft tissues: Unremarkable. IMPRESSION: 1. Left cerebellar and cerebellar vermis infarction with mild gyriform hemorrhage. 2. Acute right thalamic lacunar infarction redemonstrated. 3. Chronic small cortical infarction medial right occipital lobe redemonstrated. 4. Chronic lacunar infarctions left inferior basal ganglia/basal forebrain/capsular white matter redemonstrated. 5. Mild chronic microvascular ischemic white matter disease. A&P Assessment and plan 1. Cerebellar stroke: 2. Hypertensive urgency: Plan: # Cerebellar CVA Sx: Dizziness, left facial weakness, gaze palsy, dysarthria Risk factors: uncontrolled hypertension, obesity LKW: 48 hours prior to ED presentation Did not receive TNK, not indicated, presented outside of window [employer] not on ASA or statin CT Head showing a large acute-subacute cerebellar infarct - hospital ischemic stroke protocol - will need to follow-up with neurology outpatient - tele monitoring to evalute for arrhythmia may need to consider MCOT at d/c - Additional imaging CTA Head / Neck MR Head - Echo - Risk stratify: A1c - 5.2, LDL 128 - Received initial ASA dose in ED Continue ASA 300 mg per rectum daily - later placed on hold w/ MRI results, discussed w/ [facility] teleneuro - mIVF NS at 75 x13 hoiurs - BP management Permissive HTN first 24-48 hours, will treat if BP > 220/120 - Keep NPO. Consult STRATIGRAPHER for swallow evaluation. - Consult case management for stroke d/c planning - VTE PPx w/ SCDs # Abnormal Brain MRI # At risk for hydrocephalus / cerebral edema TeleNeurology consulted (Dr. Steel) for review of images. Neurologist concerned that patient may develop hydrocephalus and will need IVD. Recommended transfer to facility with neurosurgery. MRI showed multiple areas of acute ischemia, mild gyriform hemorrhage and left posterolateral partial effacement of the 4th ventricle redemonstrated. No interval hydrocephalus or evidence of supratentorial increased intracranial pressure. patient agreeable to transfer to [facility]. Attempted to contact spouse twice, unable to reach. Per [facility] If patient becomes obtunded / lethargic, neurologist recommends repeating CT Head and giving mannitol 1 gm/kg. Accepted by neurosurgery at [facility] (Dr. Adam Aguero) for transfer Transfer was later cancelled as neurosurgery was said to be on diversion. Multiple facilities were tried afterwards. He was eventually accepted by [facility]. I personally spoke to the community development specialist. They recommended and starting patient on 3% NS at 50 mL/h and giving him a dose of mannitol. # Leukocytosis up trending, concern for acute infection - infectious work-up blood cultures cxr ua not indicative of infection - started on empiric zosyn # Hypertensive urgency Patient reports at least a 3-year history of uncontrolled hypertension [employer] untreated - Goal SBP 150-160 - Started on amlodipine and losartan earlier, BP still elevated - will give hydralazine 10-20 mg Q4H prn for SBP > 220 and/or DBP > 120 # Dysarthria #Dysphagia - keep NPO - STRATIGRAPHER consulted for formal swallow evaluation PDMP PDMP Reviewed: Not Reviewed Attestations 2 Medical Necessity Statement*: Admitted under inpatient status. Given complexity of patient's presentation, co-morbid conditions, and required intensity of treatment, a hospitalization exceeding two midnights is anticipated. Coding Level of Care Code 03911 Diagnoses Cerebellar stroke I63.9 Hypertensive urgency I16.0
--- NOTE | 2025-02-15 13:27 | XRR_ITS ---
PROCEDURE INFORMATION: Exam: XR Chest Exam date and time: 02/15/2025 1:50 PM Age: 54 years old Clinical indication: Cough; Additional info: Cough, concern for infection, leukocytosis TECHNIQUE: Imaging protocol: Radiologic exam of the chest. Views: 1 view. COMPARISON: CR (CHEST, ) 02/14/2025 1:32 PM FINDINGS: Tubes, catheters and devices: EKG leads are present overlying the chest. Lungs: The lungs are clear bilaterally. The pulmonary vasculature is normal. Pleural spaces: No pleural effusion. No pneumothorax. Heart/Mediastinum: The heart is normal in size and contour. Mediastinum: Stable. Bones/joints: Stable. XR/XR chest 1V portable [id number] IMPRESSION: No acute cardiopulmonary abnormality identified.
[2025-02-15 14:00] VITALS: BP 163/98; PULSE 92
[2025-02-15] MEDS: piperacillin-tazobactam 3.375 GM in sodium chloride 0.9% (plus) 50 ML IV (15:01)
[2025-02-15 15:58] VITALS: BP 163/98; BP 169/98; PULSE 78; PULSE 89; RESP 17; RESP 18; TEMP 36.4; TEMP 36.7; O2SAT 96; O2SAT 99
--- NOTE | 2025-02-15 17:15 | P.DS_ITS ---
Discharge Providers Date of Admission: 02/14/25 14:11 Date of Discharge: March 18, 2025 Attending Provider at Admission: Mervin Kc MD Attending Provider at Discharge: AZAM Wade Diagnoses at Discharge Discharge Diagnosis 1. Cerebellar stroke: 2. Hypertensive urgency: Details from hospital stay: Grzegorz Bess is a 54 year old male with PMH of HTN, obesity, and recreational drug use (methamphetamine, marijuana). Patient presented to [facility] ED on 02/14/2025 with a 2-day history of persistent, severe dizziness resulting in inability to ambulate or get out of bed. Symptoms have been persistent and associated with nausea (no vomiting). Associated symptoms of left-sided facial droop, left field visual loss, slurred speech, ataxia on initial exam by EMS. Last known well ~ 48 hours prior to presentation, placing patient outside the window for thrombolytic therapy. Non- contrasted CT of the head revealed a large acute-subacute cerebellar infarct. Patient denies headache, change in vision, nausea, vomiting, chest pain shortness of breath. States he has been experiencing a productive cough with green purulence in the past week. Reports experiencing frequent palpitations. Reports having elevated blood pressure for at least 3 years, which is untreated. Admits to substance use history, meth (last use 6 months ago) and remote use of cannabis. ED course and workup reviewed Presenting VS, 02/14/25 1333 T 97.8 BP 204/99 HR 58 RR 18 SpO2 97% on room air Labs, 02/14/25 1341 HemogramWBC 13.39 RBC 4.99 PLT 250 HGB 13.5 HCT 40.4 CoagsPT 14.4 INR 1.04 aPTT 31.3 ChemistryNa 137 K 4.1 Cl 102 Ca 9.3 Glu 169 CO2 23 AG 16.1 BUN 14 Cr 0.9 eGFR 87.6 AST 11 ALT 8 ALP [address] T[address]Bili 0.[address] Head: large acute?subacute cerebellar infarct CXR: No acute cardiopulmonary abnormality Reason for Visit Reason for Visit: Dizziness.Lleft facial droop. Slurred speech. Hospital Course Hospital Course Evaluated by tele-neuroloist. due to severity of intracerebral edema patient was transferred immediately to neurosurgical center Physical Exam Narrative: Constitutional * NAD Neurologic * Awake and alert. Oriented x2 0 * Notes correct month and age 1 * Able to follow simple commands 0 * Partial gaze palsy +1 * partial hemianopia +1 * Unilateral upper and lower face paralysis 3+ * Left arm no drift 0 * Right arm no drift 0 * Left leg no drift 0 * Right leg no drift 0 * limb ataxia present in 1 limb, [id number] 1+ * no sensory loss 0 * No aphasia 0 * Mild to moderate dysarthria 1+ * Visual inattention 1+ * Total NIHSS 10 Patient is overall less engaged. His change from yesterday is very subtle. Head * Normocephalic. Atraumatic. Eyes * PERRLA. Left gaze palsy noted Ears, Nose, Throat * Normal external ears. Hearing intact to normal voice. * Normal external nose. No epistaxis. * Facial asymmetry. Able to manage secretions. Respiratory * Diminished * No dyspnea at rest or with conversation. No accessory muscle use. * On room air. Heart / Cardiovascular * Regular * No murmur Extremities * No edema bilaterally * Distal pulses 1+ * Sensation intact to light touch. Abdomen / Gastrointestinal * Soft. Non-tender. Non-distended. + BS. Genitourinary * No suprapubic tenderness * Veloz catheter present (placed overnight for urinary retention) Musculoskeletal * No focal TTP over major joint or long bones * Full ROM in all major joints without pain * Strength 5/5 throughout in bilateral upper and lower extremities Skin / Integumentary * No rashes, lesions, petechiae / ecchymosis, ulcerations or open wounds. Urinary Catheter Management: Veloz: Cath Placed During This Visit: yes Urinary Catheter Date of Insertion: 02/15/25 Urinary Catheter Time of Insertion: 07:46 Discharge Data Studies Completed and Pending Completed Studies During Hospitalization Category Date Time Status CT angio headneck* [id number] Routine Cat Scan 02/15/25 06:[address] head thrombolytic [id number] Stat Cat Scan 02/14/25 13:20 Completed XR chest 1V portable [id number] Stat Exams 02/14/25 13:20 Completed XR chest 1V portable [id number] Stat Exams 02/15/25 13:27 Completed MR head wo/w con [id number] Routine MRI 02/15/25 08:00 Completed CV. echo complete* [id number] Routine Ultrasound 02/15/25 21:39 Completed Radiology Impressions Head CT 02/14/25 13:20 IMPRESSION: 1. Large acute-subacute cerebellar infarct. The findings were verbally communicated by telephone with Dr. BEEBE at 1:36 PM DEAL ARCHITECT on 02/14/2025. ASSESSMENT: ASPECTS ([place] Stroke Program Early CT Score) is 10. Head/Neck CTA 02/15/25 06:00 IMPRESSION: 1. No large vessel stenosis or occlusion. 2. No significant change in the large left cerebellar subacute/acute infarct. IMPRESSION: No stenosis or occlusion. REFERENCES: NASCET CRITERIA. The degree of stenosis in the cervical segment of the internal carotid artery is based on NASCET criteria. Normal is no stenosis. Mild is less than 50% stenosis. Moderate is 50-69% stenosis. Severe is 70% to 99% stenosis. Total occlusion is no detectable patent lumen. Head MRI 02/15/25 08:00 IMPRESSION: 1. Left cerebellar and cerebellar vermis infarction with mild gyriform hemorrhage. 2. Acute right thalamic lacunar infarction redemonstrated. 3. Chronic small cortical infarction medial right occipital lobe redemonstrated. 4. Chronic lacunar infarctions left inferior basal ganglia/basal forebrain/capsular white matter redemonstrated. 5. Mild chronic microvascular ischemic white matter disease. ADDENDUM: 02/15/25 1050 THIS REPORT CONTAINS FINDINGS THAT MAY BE CRITICAL TO PATIENT CARE. The findings were verbally communicated by me to RADIATION ONCOLOGY THERAPIST Farhat Donald via telephone conference at 10:48 AM DEAL ARCHITECT on 02/15/2025. The findings were acknowledged and understood. Chest X-Ray 02/15/25 13:27 IMPRESSION: No acute cardiopulmonary abnormality identified. Laboratory Results WBC 15.20 10^3/uL (3.29-11.43) H 02/15/25 04:18 RBC 5.11 10^6/uL (3.85-5.65) 02/15/25 04:18 Hgb 13.70 g/dL (11.27-16.99) 02/15/25 04:18 Hct 40.4 % (37-53) 02/15/25 04:18 MCV 79.1 fl (82-101) L 02/15/25 04:18 MCH 26.8 pg (27-33) L 02/15/25 04:18 MCHC 33.9 g/dL (30-55) 02/15/25 04:18 RDW 13.1 % (12.1-15.1) 02/15/25 04:18 Plt Count 289 10^3/cmm (157-399) 02/15/25 04:18 MPV 11.4 fL (7.4-10.4) H 02/15/25 04:18 Neut % (Auto) 71.8 % 02/15/25 04:18 Lymph % (Auto) 18.8 % 02/15/25 04:18 [place] % (Auto) 8.4 % 02/15/25 04:18 Eos % (Auto) 0.1 % 02/15/25 04:18 Baso % (Auto) 0.3 % 02/15/25 04:18 Neut # (Auto) 10.93 10^3/uL (1.8-7.7) H 02/15/25 04:18 Lymph # (Auto) 2.9 10^3/uL (0.8-4.8) 02/15/25 04:18 [place] # (Auto) 1.3 10^3/uL (0.2-0.9) H 02/15/25 04:18 Eos # (Auto) 0.0 10^3/uL (0.0-0.8) 02/15/25 04:18 Baso # (Auto) 0.0 10^3/uL (0.0-0.1) 02/15/25 04:18 Nucleated RBC % (auto) 0 % 02/15/25 04:18 Nucleated RBCs # 0.0 /100WBC 02/15/25 04:18 PT 14.40 SECONDS (12.1-14.9) 02/14/25 13:41 INR 1.04 (0.8-1.2) 02/14/25 13:41 APTT 31.3 SECONDS (23.9-36.7) 02/14/25 13:41 Sodium Cancelled 02/15/25 15:20 Potassium Cancelled 02/15/25 15:20 Chloride Cancelled 02/15/25 15:20 Carbon Dioxide Cancelled 02/15/25 15:20 Anion Gap Cancelled 02/15/25 15:20 BUN Cancelled 02/15/25 15:20 Creatinine Cancelled 02/15/25 15:20 GFR Calculation Cancelled 02/15/25 15:20 Glucose Cancelled 02/15/25 15:20 POC Glucose 149 mg/dL (70-110) H 02/15/25 12:10 Estimat Average Glucose 103 02/15/25 04:18 Hemoglobin A1c 5.2 % (4.0-6.0) 02/15/25 04:18 Calculated Osmolality Cancelled 02/15/25 15:20 Calcium Cancelled 02/15/25 15:20 Total Bilirubin 0.6 mg/dL (0.15-1.2) 02/15/25 04:18 AST 17 U/L (0-40) 02/15/25 04:18 ALT 8 U/L (0-41) 02/15/25 04:18 Alkaline Phosphatase 143 U/L (40-130) H 02/15/25 04:18 Total Protein 7.4 g/dL (6.6-8.7) 02/15/25 04:18 Albumin 4.4 g/dL (3.5-5.2) 02/15/25 04:18 Globulin 3.0 g/dL (1.3-4.6) 02/15/25 04:18 Triglycerides 110 mg/dL (0-150) 02/15/25 04:18 Cholesterol 185 mg/dL (0-200) 02/15/25 04:18 LDL Cholesterol, Calc 128 mg/dL (50-129) 02/15/25 04:18 HDL Cholesterol 35 mg/dL (60-100) L 02/15/25 04:18 LDL/HDL Ratio 3.66 RATIO (0.00-3.22) H 02/15/25 04:18 Cholesterol/HDL Ratio 5.29 mg/dL (1.0-5.00) H 02/15/25 04:18 Lipase 14 U/L (13-60) 02/14/25 13:41 Urine Color Yellow (Yellow) 02/15/25 07:45 Urine Appearance Clear (CLEAR) 02/15/25 07:45 Urine pH 6.5 (5-7) 02/15/25 07:45 Ur Specific Dexter 1.022 (1.005-1.030) 02/15/25 07:45 Urine Protein Trace (Negative) A 02/15/25 07:45 Urine Glucose (UA) Trace (Normal) H 02/15/25 07:45 Urine Ketones Negative (Negative) 02/15/25 07:45 Urine Blood Non-haemolysed trace (Negative) 02/15/25 07:45 Urine Nitrate Negative (Negative) 02/15/25 07:45 Urine Bilirubin Negative (Negative) 02/15/25 07:45 Urine Urobilinogen 1.0 mg/dL (Negative) 02/15/25 07:45 Ur Leukocyte Esterase Negative (Negative) 02/15/25 07:45 Urine RBC 6-10 /hpf (0-2) 02/15/25 07:45 Urine WBC 0-5 /hpf (0-5) 02/15/25 07:45 Ur Squamous Epith Cells 0-5 /hpf (0-5) 02/15/25 07:45 Amorphous Sediment Not Reportable 02/15/25 07:45 Urine Bacteria None seen /hpf (NONE) 02/15/25 07:45 Hyaline Casts 0.81 /lpf 02/15/25 07:45 Urine Opiates Screen Negative ng/mL (Negative) 02/15/25 07:45 Ur Barbiturates Screen Negative ng/mL (Negative) 02/15/25 07:45 Ur Phencyclidine Scrn Negative ng/mL (Negative) 02/15/25 07:45 Ur Amphetamines Screen Negative ng/mL (Negative) 02/15/25 07:45 U Benzodiazepines Scrn Negative ng/mL (Negative) 02/15/25 07:45 Urine Cocaine Screen Negative ng/mL (Negative) 02/15/25 07:45 U Marijuana (THC) Screen Negative ng/mL (Negative) 02/15/25 07:45 Vitals Last Vital Signs Temp 98.1 F 02/15/25 15:58 Pulse 78 02/15/25 15:58 Resp 18 02/15/25 15:58 BP 163/98 02/15/25 15:58 Pulse Ox 99 02/15/25 15:58 O2 Del Method Room Air 02/15/25 15:58 Discharge Plan Discharge Patient Disposition: Xfer Short-Term Hosp Condition: Stable Prescriptions: No Action No Known Home Medications Patient Instructions: Opioid Safety, Patient Portal & Brittany Instructions Discharge Attestations Time Spent in Discharge Care*: less than 30 min Quality Metrics Clinical Quality Measures [ Cerebrovascular Accident { Contraindication to Antithrombotic: Medical contraindication (risk of hemorrhagic conversion); Contraindication to Anticoagulation: Medical contraindication (risk of hemorrhagic conversion); Contraindication to Statin: Medical contraindication (risk of hemorrhagic conversion);}] Coding Level of Care Code Acute Code for [facility] Fwd Diagnoses Cerebellar stroke I63.9 Hypertensive urgency I16.0
--- NOTE | 2025-02-15 21:39 | USCV_ITS ---
Grzegorz Bess Age: 54 Gender: M : 1970 Exam Date: 02/15/2025 11:26 Ordering Phys: Farhat Donald NP Technologist: WIL [place]am [place] [facility] [place]: acute sroke BP: 159 / 90 HR: 74 Rhythm: Sinus Technical Quality: Adequate MEASUREMENTS (Male / Female) Normal Values 2D ECHO LV Diastolic Diameter PLAX 3.8 cm 4.2 - 5.9 / 3.9 - 5.3 cm IVS Diastolic Thickness 1.0 cm 0.6 - 1.0 / 0.6 - 0.9 cm IVS Systolic Thickness 1.0 cm LVPW Diastolic Thickness 0.9 cm 0.6 - 1.0 / 0.6 - 0.9 cm LVPW Systolic Thickness 1.5 cm LVOT Diameter 2.1 cm LV Ejection Fraction 2D Teich 63.2 % LV Ejection Fraction MOD 4C 66.3 % LV Ejection Fraction MOD 2C 59.0 % LV Ejection Fraction 2C AL 58.6 % LA Diameter 3.6 cm RA Systolic Volume 4C AL 44.2 ml RA Systolic Volume 4C MOD 36.1 ml LA Sys Volume AL 43.6 cm cubed LA Sys Volume Index AL 21.8 cm cubed/m squared Aorta at Sinotubular Diameter 2.9 cm IVC Diameter 1.5 cm M-MODE LA Ao Ratio MM 1.3 AV Cusp Separation MM 2.3 cm DOPPLER AV Peak Velocity 105.3 cm/s LVOT Peak Velocity 78.0 cm/s AV Area Cont Eq vti 2.6 cm squared AV Area Cont Eq pk 2.6 cm squared MV Peak Velocity 80.0 cm/s MV Area PHT 4.7 cm squared Mitral E to A Ratio 0.8 TV Peak Velocity 126.3 cm/s TR Peak Velocity 146.0 cm/s TR Peak Gradient 8.5 mmHg TR Mean Velocity 117.0 cm/s TR Mean Gradient 5.7 mmHg TR Velocity Time Integral 31.6 cm PV Peak Velocity 91.0 cm/s RV Ejection Time 0.3 s FINDINGS Left Ventricle Normal left ventricular size, systolic function and wall thickness, with no regional wall motion abnormalities. Left ventricular ejection fraction is estimated at 60 %. Grade I/IV diastolic dysfunction (abnormal relaxation filling pattern), normal to mildly elevated filling pressures. Right Ventricle Normal right ventricular size and systolic function. Right Atrium Normal right atrial size. Left Atrium Normal left atrial size. IA Septum Normal appearance of the interatrial septum. Mitral Valve Structurally normal mitral valve. Trace mitral valve regurgitation. Aortic Valve Mild aortic valve calcification. Structurally normal trileaflet aortic valve. No aortic valve stenosis. No aortic valve regurgitation. Tricuspid Valve Normal tricuspid valve structure. No tricuspid valve stenosis or regurgitation. Normal pulmonary pressure. Pulmonic Valve Normal pulmonic valve structure. No pulmonic valve stenosis or regurgitation. Pericardium No pericardial effusion. Aorta Normal diameter of the aortic root and ascending thoracic aorta. IVC Normal IVC diameter. CONCLUSIONS Normal left ventricular size, systolic function and wall thickness, with no regional wall motion abnormalities. Left ventricular ejection fraction is estimated at 60 %. Grade I/IV diastolic dysfunction (abnormal relaxation filling pattern), normal to mildly elevated filling pressures. Normal right ventricular size and systolic function. No significant valvular abnormalities. There is no pericardial effusion. Right atrial pressure is around 5 mm of mercury. Boby Vang MD (Electronically Signed) Final Date: 15 February 2025 23:54 S
== END 2025-02-15 16:00 | disposition short-term general hospital (02) | DRG 45 ==
LOC: ER 15:34 → MEDSURG 16:21
PROVIDERS: Admitting Provider Internal Medicine; Emergency Provider Emergency Medicine; Visit Provider Nurse Practitioner Gerontology
DX: I63.9 Cerebral infarction, unspecified (principal); R29.810 Facial weakness; H53.8 Other visual disturbances; R47.81 Slurred speech; R27.0 Ataxia, unspecified; R13.10 Dysphagia, unspecified; R29.710 NIHSS score 10; I16.0 Hypertensive urgency; I10 Essential (primary) hypertension; E66.9 Obesity, unspecified; Z68.29 Body mass index [BMI] 29.0-29.9, adult; R33.9 Retention of urine, unspecified; D72.829 Elevated white blood cell count, unspecified
CPT/HCPCS: 36415; 36416; 51702; 70450; 70496; 70498; 70553; 71045; 80053; 80061; 80306; 81001; 82962; 83036; 83690; 85025; 85610; 85730; 87040; 92610; 93005; 93306; 96374; 99285; J2405; J2543; J7030; J7131; J9999